=== PATIENT | female | born 1955 | race Caucasian/White ===

== ENCOUNTER 2018-06-07 17:15 | Inpatient (IN) ==
[2018-06-07] MEDS ORDERED: Aspirin 81 MG TAB.CHEW PO ONE (17:23)
[2018-06-07 17:56] LABS: Basophils % 0.2 %; Eosinophils % 0.1 %; Hematocrit 40.7 % (35.3-44.9); Hemoglobin 13.5 g/dL (11.5-15.4); Immature Granulocytes % 0.7 % (0-4); Lymphocytes # 0.7 K/mcL (0.6-4.6); Lymphocytes % 4.1 %; Mean Corpuscular HGB Conc 33.2 g/dL (31.6-35.5); Mean Corpuscular Hemoglobin 29.1 pg (28.0-33.3); Mean Corpuscular Volume 87.7 fL (83.0-100.0); Mean Platelet Volume 9.7 fL (9.4-12.4); Monocytes # 0.7 K/mcL (0.0-1.3); Monocytes % 4.1 %; Neutrophils # 15.2 K/mcL (1.6-8.9); Platelet Count 184 K/mcL (140-400); Red Blood Count 4.64 M/mcL (3.82-4.97); Red Cell Distribution Width 13.2 % (11.5-14.5); Segmented Neutrophils % 90.8 %
--- NOTE | 2018-06-07 18:07 | Emergency Department Note ---
Disposition Clinical Impression: RUQ abdominal pain, Nodule on liver, Elevated WBCs Chest pain Qualifiers: Chest pain type: unspecified Qualified Code(s): R07.9 - Chest pain, unspecified Disposition: Admitted As Inpatient Condition: Good General Adult HPI - General Chief complaint: ED Chest Pain Stated complaint: CP Time Seen by Provider: 06/07/18 17:20 Source: patient, family Limitations: no limitations - History of Present Illness Pain Scale: 9 - Related Data Previous Rx's Medication Instructions Recorded Diclofenac Sodium [Voltaren] 50 mg PO Q8HR #30 tablet. 11/08/16 Clindamycin [Cleocin] 150 mg PO Q6HR #7 capsule 02/04/17 HYDROcodone/Acet 5/325 mg [[place] 1 tab PO Q6H PRN #14 tab 02/04/17 5-325 mg] Ibuprofen [Motrin] 600 mg PO Q8HR #20 tab 02/04/17 Allergies Allergy/AdvReac Type Severity Reaction Status Date / Time lisinopril Allergy Rash/Itchin Verified 01/27/17 10:38 g codeine AdvReac Vomiting Verified 01/27/17 10:38 Past Medical History - Past Medical History Medical history: Reports: diabetes, fibromyalgia, hypertension, thyroid disease, other Surgical history: Reports: , cholecystectomy, WILY/BSO Psychiatric history: Reports: anxiety - Social History Smoking Status: Never smoker Smokeless Tobacco Status: No Alcohol use: Reports: none Drug use: Reports: none Physical Exam - General Limitations: no limitations General appearance: alert, in no apparent distress Course Vital Signs Temperature 99.6 F 06/07/18 17:17 Pulse Rate 119 06/07/18 17:17 Respiratory Rate 20 06/07/18 17:17 Blood Pressure 137/74 06/07/18 17:17 O2 Sat by Pulse Oximetry 97 06/07/18 17:17 Temperature 99.6 F 06/07/18 17:26 Pulse Rate 105 06/07/18 19:31 Respiratory Rate 18 06/07/18 19:31 Blood Pressure 114/69 06/07/18 18:13 O2 Sat by Pulse Oximetry 97 06/07/18 19:31 Oxygen Delivery Oxygen Delivery Room Air Medical Decision Making - Lab Data Result diagrams: 06/07/18 17:42 06/07/18 17:42 Lab Results 06/07/18 06/07/18 Range/Units 17:42 17:42 WBC 16.8 H (4.3-11.1) K/mcL RBC 4.64 (3.82-4.97) M/mcL Hgb 13.5 (11.5-15.4) g/dL Hct 40.7 (35.3-44.9) % MCV 87.7 (83.0-100.0) fL MCH 29.1 (28.0-33.3) pg MCHC 33.2 (31.6-35.5) g/dL RDW 13.2 (11.5-14.5) % Plt Count 184 (140-400) K/mcL MPV 9.7 (9.4-12.4) fL Immature Gran % 0.7 (0-4) % Seg Neutrophils % 90.8 % Lymphocytes % 4.1 % Monocytes % 4.1 % Eosinophils % 0.1 % Basophils % 0.2 % Neutrophils # 15.2 H (1.6-8.9) K/mcL Lymphocytes # 0.7 (0.6-4.6) K/mcL Monocytes # 0.7 (0.0-1.3) K/mcL Eosinophils # 0.0 (0.0-0.6) K/mcL Basophils # 0.0 (0.0-0.2) K/mcL Sodium 132 L (136-145) mEq/L Potassium 3.8 (3.5-5.1) mEq/L Chloride 99 (98-107) mEq/L Carbon Dioxide 25 (23-29) mEq/L BUN 13 (8-23) mg/dL Creatinine 0.69 (0.60-1.20) mg/dL Est GFR ( Amer) > 60 (> 60) Est GFR (Non-Af Amer) > 60 (> 60) BUN/Creatinine Ratio 19 (6-26) Glucose 155 H (70-105) mg/dL Calculated Osmolality 277 L (280-300) Calcium 8.8 (8.6-10.3) mg/dL Total Bilirubin 0.6 (0.3-1.0) mg/dL Direct Bilirubin 0.2 (0.0-0.2) mg/dL Indirect Bilirubin 0.4 (0.0-1.2) mg/dL AST 31 (13-39) Units/L ALT 30 (7-52) Units/L Alkaline Phosphatase 121 H (34-104) Units/L Troponin I < 0.03 (< 0.04) ng/mL Serum Total Protein 7.2 (6.4-8.9) g/dL Albumin 4.0 (3.5-5.7) g/dL Globulin 3.2 (2.4-3.5) g/dL Albumin/Globulin Ratio 1.3 (1.1-2.2) Lipase 9 L (11-82) Units/L Attestation Statement - Attestation Attestation: I examined this patient and my medical decision-making was reviewed with the Resident Physician. I agree with the documented findings, disposition and treatment plan as described except to the extent set forth below. Patient to the ED with a chief clinic chest pain. Patient describes sharp pain in the lower chest. Onset a few months ago but has been constant for the past couple weeks. Worse the past couple days. No vomiting no fever. No cardiac history. Never had a stress test or heart catheter. On examination she is awake and alert in no distress. Heart regular rate and rhythm lungs are clear. Plan. Cardiac workup. White count elevated. We will go back and reevaluate for abdominal pathology. CT abdomen is unremarkable. Patient will be admitted for further cardiac workup secondary risk factors and an elevated heart score.
--- NOTE | 2018-06-07 18:09 | Emergency Department Note ---
Disposition Clinical Impression: RUQ abdominal pain, Nodule on liver, Elevated WBCs Chest pain Qualifiers: Chest pain type: unspecified Qualified Code(s): R07.9 - Chest pain, unspecified Disposition: Admitted As Inpatient Condition: Good Chest Pain HPI - General Chief Complaint: ED Chest Pain Stated Complaint: CP Time Seen by Provider: 06/07/18 17:20 Source: patient, family Limitations: no limitations - History of Present Illness HPI Narrative: Lamar is a 63 YO F with a PMH significant for DM, HTN, hypothyroidsm, fibromyalgia who presents with a chief complaint of chest pain. History comes from the patient and her . Lamar states she has had intermittant chest pain for the last 3 months. She states that this pain is a sharp, substernal pain that is nonradiating, not worsened with exertion or relieved by rest, not reproducible with palpation and nonpositional. She states that over the last 3 months she has experienced this pain spontaneously 2-3 times per week, lasting several minutes with each episode. However in the last 2-3 weeks she has noted that this pain is occurring multiple times per day. This marked increase in the frequency of her symptoms made her very concerned and led her to come to [facility] ED for further evaluation and treatment. She endorses some associated nausea heada mari and shortness of breath associated with this chest pain, but denies F/C/NS. She does not have a personal history of cardiac disease however her father had 3 heart attacks, with the first occurring at age 40. Pt complaint: chest pain Onset (ago): month(s) Duration: intermittent, gradually worsening Onset: during rest, during exertion Pain Location: substernal Severity: severe Severity scale (1-10): 9 Quality: sharp Pain Radiation: none Improves with: nothing Worsens with: nothing Associated symptoms: Reports: nausea - Related Data Previous Rx's Medication Instructions Recorded Diclofenac Sodium [Voltaren] 50 mg PO Q8HR #30 tablet. 11/08/16 Clindamycin [Cleocin] 150 mg PO Q6HR #7 capsule 02/04/17 HYDROcodone/Acet 5/325 mg [[place] 1 tab PO Q6H PRN #14 tab 02/04/17 5-325 mg] Ibuprofen [Motrin] 600 mg PO Q8HR #20 tab 02/04/17 Allergies Allergy/AdvReac Type Severity Reaction Status Date / Time lisinopril Allergy Rash/Itchin Verified 01/27/17 10:38 g codeine AdvReac Vomiting Verified 01/27/17 10:38 Constitutional: Denies: fever, chills, weakness Cardiovascular: Reports: chest pain. Denies: palpitations, edema Respiratory: Denies: cough, wheezes, sputum production Gastrointestinal: Reports: nausea. Denies: abdominal pain, vomiting, diarrhea Genitourinary: Denies: urgency, dysuria Musculoskeletal: Denies: back pain Neurological: Reports: headache. Denies: weakness Psychiatric: Denies: anxiety Endocrine: Denies: fatigue Chest Pain PMH - Past Medical History Medical history: Reports: diabetes, fibromyalgia, hypertension, thyroid disease, other Surgical history: Reports: , cholecystectomy, WILY/BSO Psychiatric history: Reports: anxiety - Social History Smoking Status: Never smoker Alcohol use: Reports: none Drug use: Reports: none Physical Exam - General Limitations: no limitations General appearance: alert, in no apparent distress - Head Head exam: atraumatic, normocephalic, normal inspection - Eye Eye exam: Present: normal appearance - ENT ENT exam: normal exam - Neck Neck exam: Present: normal inspection, full ROM, trachea midline - Cardiovascular Cardiovascular exam: Present: normal rhythm, tachycardia, normal heart sounds - Abdominal Exam Abdominal exam: Present: soft. Absent: tenderness, distention, guarding, rebound, rigidity Abdominal tenderness: Present: RUQ - Extremities Exam Extremities exam: Present: normal inspection, full ROM - Expanded Lower Extremity Exam Neurovascular/Tendon exam: Present: normal capillary refill, pulse deficit, motor deficit, sensory deficit - Neurological Exam Neurological exam: Present: alert, oriented X3, CN II-XII intact - Psychiatric Psychiatric exam: Present: normal affect, normal mood - Skin Skin exam: Present: warm, dry, intact, normal color Course Course Narrative: Will perform chest pain rule out work up, including imaging and laboratory evaluation. - Reevaluation(s) Reevaluation #1: Initial troponin negative, no STEMI on EKG. CXR and CT ABD/Pelvis showed no acute abnormality. Heart score of five, no previous cardiac echo or stress test. Will admit to trend out enzymes and pursue stress test if future troponins are negative. Vital Signs Temperature 99.6 F 06/07/18 17:17 Pulse Rate 119 06/07/18 17:17 Respiratory Rate 20 06/07/18 17:17 Blood Pressure 137/74 06/07/18 17:17 O2 Sat by Pulse Oximetry 97 06/07/18 17:17 Temperature 99.6 F 06/07/18 17:26 Pulse Rate 105 06/07/18 19:31 Respiratory Rate 18 06/07/18 19:31 Blood Pressure 114/69 06/07/18 18:13 O2 Sat by Pulse Oximetry 97 06/07/18 19:31 Oxygen Delivery Oxygen Delivery Room Air Chest Pain - Lab Data Result diagrams: 06/07/18 17:42 06/07/18 17:42 Lab Results 06/07/18 06/07/18 Range/Units 17:42 17:42 WBC 16.8 H (4.3-11.1) K/mcL RBC 4.64 (3.82-4.97) M/mcL Hgb 13.5 (11.5-15.4) g/dL Hct 40.7 (35.3-44.9) % MCV 87.7 (83.0-100.0) fL MCH 29.1 (28.0-33.3) pg MCHC 33.2 (31.6-35.5) g/dL RDW 13.2 (11.5-14.5) % Plt Count 184 (140-400) K/mcL MPV 9.7 (9.4-12.4) fL Immature Gran % 0.7 (0-4) % Seg Neutrophils % 90.8 % Lymphocytes % 4.1 % Monocytes % 4.1 % Eosinophils % 0.1 % Basophils % 0.2 % Neutrophils # 15.2 H (1.6-8.9) K/mcL Lymphocytes # 0.7 (0.6-4.6) K/mcL Monocytes # 0.7 (0.0-1.3) K/mcL Eosinophils # 0.0 (0.0-0.6) K/mcL Basophils # 0.0 (0.0-0.2) K/mcL Sodium 132 L (136-145) mEq/L Potassium 3.8 (3.5-5.1) mEq/L Chloride 99 (98-107) mEq/L Carbon Dioxide 25 (23-29) mEq/L BUN 13 (8-23) mg/dL Creatinine 0.69 (0.60-1.20) mg/dL Est GFR ( Amer) > 60 (> 60) Est GFR (Non-Af Amer) > 60 (> 60) BUN/Creatinine Ratio 19 (6-26) Glucose 155 H (70-105) mg/dL Calculated Osmolality 277 L (280-300) Calcium 8.8 (8.6-10.3) mg/dL Total Bilirubin 0.6 (0.3-1.0) mg/dL Direct Bilirubin 0.2 (0.0-0.2) mg/dL Indirect Bilirubin 0.4 (0.0-1.2) mg/dL AST 31 (13-39) Units/L ALT 30 (7-52) Units/L Alkaline Phosphatase 121 H (34-104) Units/L Troponin I < 0.03 (< 0.04) ng/mL Serum Total Protein 7.2 (6.4-8.9) g/dL Albumin 4.0 (3.5-5.7) g/dL Globulin 3.2 (2.4-3.5) g/dL Albumin/Globulin Ratio 1.3 (1.1-2.2) Lipase 9 L (11-82) Units/L Heart Score - Score History: Moderately Suspicious EKG: Non Specific repolarisation Disturbance Age: 45-65 Risk Factors: Equal/Greater than 3 risk factor or history of atherosclerotic disease Troponin: Less than normal limit HEART Score Total: 5
[2018-06-07] MEDS ORDERED: Isovue-370 500 ML INFUS..BTL IV ONE ×2 (18:12→23:56)
[2018-06-07 18:15] LABS: BUN/Creatinine Ratio 19 (6-26); Blood Urea Nitrogen 13 mg/dL (8-23); Calcium 8.8 mg/dL (8.6-10.3); Carbon Dioxide 25 mEq/L (23-29); Chloride 99 mEq/L (98-107); Glucose 155 mg/dL (70-105); Osmolality,Calculated 277 (280-300); Potassium 3.8 mEq/L (3.5-5.1); Sodium 132 mEq/L (136-145); eGFR For Non-African Americans > 60 (> 60)
[2018-06-07 18:16] LABS: Troponin I < 0.03 ng/mL (< 0.04)
--- NOTE | 2018-06-07 18:16 | Emergency Department Note ---
Disposition Clinical Impression: RUQ abdominal pain, Nodule on liver Chest pain Qualifiers: Chest pain type: unspecified Qualified Code(s): R07.9 - Chest pain, unspecified Elevated WBCs Qualifiers: Leukocytosis type: unspecified Qualified Code(s): D72.829 - Elevated white blood cell count, unspecified Disposition: Admitted As Inpatient Condition: Good Time of Disposition: 19:18 General Adult HPI - General Chief complaint: ED Chest Pain Stated complaint: CP Time Seen by Provider: 06/07/18 17:20 Source: patient, family Limitations: no limitations Nursing Notes Reviewed: Yes Vital Signs Reviewed: Yes - History of Present Illness HPI Narrative: I examined this patient and my medical decision-making was reviewed with the Resident Physician Maria Eugenia. I agree with the documented history of present illness. Please see my note for physical exam, medical decision making, and disposition. Pain Scale: 9 - Related Data Previous Rx's Medication Instructions Recorded Diclofenac Sodium [Voltaren] 50 mg PO Q8HR #30 tablet. 11/08/16 Clindamycin [Cleocin] 150 mg PO Q6HR #7 capsule 02/04/17 HYDROcodone/Acet 5/325 mg [[place] 1 tab PO Q6H PRN #14 tab 02/04/17 5-325 mg] Ibuprofen [Motrin] 600 mg PO Q8HR #20 tab 02/04/17 Allergies Allergy/AdvReac Type Severity Reaction Status Date / Time lisinopril Allergy Rash/Itchin Verified 01/27/17 10:38 g codeine AdvReac Vomiting Verified 01/27/17 10:38 All systems ED: reviewed and negative except as stated. Constitutional: Denies: fever, chills, weakness Cardiovascular: Reports: chest pain. Denies: palpitations, edema Respiratory: Denies: cough, wheezes, sputum production Gastrointestinal: Reports: nausea. Denies: abdominal pain, vomiting, diarrhea Genitourinary: Denies: urgency, dysuria Musculoskeletal: Denies: back pain Neurological: Reports: headache. Denies: weakness Psychiatric: Denies: anxiety Endocrine: Denies: fatigue Past Medical History - Past Medical History Medical history: Reports: diabetes, fibromyalgia, hypertension, thyroid disease, other Surgical history: Reports: , cholecystectomy, WILY/BSO Psychiatric history: Reports: anxiety - Social History Smoking Status: Never smoker Smokeless Tobacco Status: No Alcohol use: Reports: none Drug use: Reports: none Physical Exam Vital Signs Reviewed General: Patient is alert, oriented, and in no acute distress. Head: atraumatic, normocephalic Eye: normal appearance, PERRL, EOMI, no scleral icterus, no conjunctival injection ENT: mucous membranes moist, normal external ear exam Neck: normal inspection, trachea midline, full ROM Chest: normal inspection, symmetric chest rise Respiratory: Good respiratory effort. Bilateral breath sounds are clear without wheezing, crackles, or rhonchi. Cardiovascular: Regular rate and rhythm. No clicks, rubs, gallops, or murmors. Normal heart sounds. Abdomen: Bowel sounds present normoactive. Abdomen is soft, nondistended. Mild epigastric and right tenderness. No guarding or rebound. No organomegaly noted. Musculoskeletal: Spontaneously moving all extremities. Skin: warm, dry, intact. Neuro: Alert and oriented x4. GCS 15. Psych: Patient's affect is appropriate for situation. - General Limitations: no limitations General appearance: alert, in no apparent distress Course Course Narrative: Concern both for patient's chest pain as well as her right upper quadrant and epigastric pain. EKG shows no acute ischemic changes. Has never had a cardiac workup previously. The patient's abdominal surgical history includes cholecystectomy, complete hysterectomy with bilateral oophorectomy, and 3 hernia repairs-will draw LFTs, lipase, CT of the pelvis with IV contrast. The patient is afebrile, she does have leukocytosis of 16.8. EKG dated May at 17:31 interpreted as sinus tachycardia with a rate of 114. NC 62, QRS 88, QTc 453. Nonspecific ST-T changes. Compared to previous dated 01/27/2017 showing no acute ischemic changes or comparison. CT abdomen pelvis shows no acute intra-abdominal abnormalities per radiology read. There are some liver nodules suspicious for cirrhosis per radiology. Patient does not have elevated hepatic enzymes or bilirubin. Chest x-ray is unremarkable. EKG is unremarkable. Serum chemistry shows troponin below upper limits of normal. I discussed the above the patient. Given her risk factors with a heart score 5, recommend admission for continued evaluation and management. Patient agrees to this plan of care. I discussed the above with the admitting hospitalist, Dr. Taylor, who agrees to accept patient for continued evaluation monitoring for chest pain rule out ACS. Chest X-Ray 06/07/18 17:23 IMPRESSION: No acute process. D/ / Mario Alberto Ratliff MD / Mario Alberto Ratliff MD Interpreting Provider: Mario Alberto Ratliff MD Abdomen/Pelvis CT 06/07/18 18:12 IMPRESSION: 1. No acute intra-abdominal abnormality. 2. No acute intrapelvic abnormality. 3. Nodular appearance to the liver which may represent cirrhosis. D/ / Vaughn Purcell MD / Vaughn Purcell MD Interpreting Provider: Vaughn Purcell MD Vital Signs Temperature 99.6 F 06/07/18 17:17 Pulse Rate 119 06/07/18 17:17 Respiratory Rate 20 06/07/18 17:17 Blood Pressure 137/74 06/07/18 17:17 O2 Sat by Pulse Oximetry 97 06/07/18 17:17 Temperature 99.6 F 06/07/18 17:26 Pulse Rate 105 06/07/18 19:31 Respiratory Rate 18 06/07/18 19:31 Blood Pressure 114/69 06/07/18 18:13 O2 Sat by Pulse Oximetry 97 06/07/18 19:31 Oxygen Delivery Oxygen Delivery Room Air Medical Decision Making - Lab Data Result diagrams: 06/07/18 17:42 06/07/18 17:42 Lab Results 06/07/18 06/07/18 Range/Units 17:42 17:42 WBC 16.8 H (4.3-11.1) K/mcL RBC 4.64 (3.82-4.97) M/mcL Hgb 13.5 (11.5-15.4) g/dL Hct 40.7 (35.3-44.9) % MCV 87.7 (83.0-100.0) fL MCH 29.1 (28.0-33.3) pg MCHC 33.2 (31.6-35.5) g/dL RDW 13.2 (11.5-14.5) % Plt Count 184 (140-400) K/mcL MPV 9.7 (9.4-12.4) fL Immature Gran % 0.7 (0-4) % Seg Neutrophils % 90.8 % Lymphocytes % 4.1 % Monocytes % 4.1 % Eosinophils % 0.1 % Basophils % 0.2 % Neutrophils # 15.2 H (1.6-8.9) K/mcL Lymphocytes # 0.7 (0.6-4.6) K/mcL Monocytes # 0.7 (0.0-1.3) K/mcL Eosinophils # 0.0 (0.0-0.6) K/mcL Basophils # 0.0 (0.0-0.2) K/mcL Sodium 132 L (136-145) mEq/L Potassium 3.8 (3.5-5.1) mEq/L Chloride 99 (98-107) mEq/L Carbon Dioxide 25 (23-29) mEq/L BUN 13 (8-23) mg/dL Creatinine 0.69 (0.60-1.20) mg/dL Est GFR ( Amer) > 60 (> 60) Est GFR (Non-Af Amer) > 60 (> 60) BUN/Creatinine Ratio 19 (6-26) Glucose 155 H (70-105) mg/dL Calculated Osmolality 277 L (280-300) Calcium 8.8 (8.6-10.3) mg/dL Total Bilirubin 0.6 (0.3-1.0) mg/dL Direct Bilirubin 0.2 (0.0-0.2) mg/dL Indirect Bilirubin 0.4 (0.0-1.2) mg/dL AST 31 (13-39) Units/L ALT 30 (7-52) Units/L Alkaline Phosphatase 121 H (34-104) Units/L Troponin I < 0.03 (< 0.04) ng/mL Serum Total Protein 7.2 (6.4-8.9) g/dL Albumin 4.0 (3.5-5.7) g/dL Globulin 3.2 (2.4-3.5) g/dL Albumin/Globulin Ratio 1.3 (1.1-2.2) Lipase 9 L (11-82) Units/L Heart Score - Score History: Moderately Suspicious EKG: Non Specific repolarisation Disturbance Age: 45-65 Risk Factors: Equal/Greater than 3 risk factor or history of atherosclerotic disease Troponin: Less than normal limit HEART Score Total: 5
[2018-06-07 18:52] LABS: Alanine Aminotransferase 30 Units/L (7-52); Albumin/Globulin Ratio 1.3 (1.1-2.2); Alkaline Phosphatase 121 Units/L (34-104); Aspartate Amino Transferase 31 Units/L (13-39); Bilirubin,Direct 0.2 mg/dL (0.0-0.2); Bilirubin,Indirect 0.4 mg/dL (0.0-1.2); Bilirubin,Total 0.6 mg/dL (0.3-1.0); Globulin 3.2 g/dL (2.4-3.5); Lipase 9 Units/L (11-82); Total Protein 7.2 g/dL (6.4-8.9)
[2018-06-07] MEDS ORDERED: 0.9 % Sodium Chloride 1,000 ML IVC ONE (20:55)
[2018-06-07] MEDS ORDERED: *HR* HYDROcodone/Acet 5/325 mg TABLET PO PRN (20:55)
[2018-06-07] MEDS ORDERED: Nitroglycerin 0.4 MG TAB.SUBL SL PRN (21:00)
[2018-06-07] MEDS ORDERED: Dextrose Gel 15 GM/37.5 ML TUBE PO PRN ×2 (21:04)
[2018-06-07] MEDS ORDERED: Ondansetron 4 MG/2 ML VIAL IVP PRN (21:08)
[2018-06-07] MEDS ORDERED: traMADol 50 MG TABLET PO PRN (21:09)
--- NOTE | 2018-06-07 21:17 | Internal Med History&Physical ---
Date of Encounter: 06/07/18 Time of Encounter: 21:15 Internal Medicine - H&P: HPI Chief complaint: Chest pain Admitted From: Home Plans for Post Hospital Care: Home History of present illness: Lamar Sanchez is a 63 year old obese woman who reports a history of diabetes presenting with a complaint of midsternal chest pain. She stated that she has been having chest pain on and off for the past couple of months however in the last week it has been more frequent and prolonged in duration localizing it to the inferior midsternal region. She denies associated shortness of breath, diaphoresis or lightheadedness. She does state she has felt some palpitations with the chest pain as well. She denies any prior cardiac history. He denies shortness of breath, cough or expectoration. No fever or chills. In the ER she was found to have an elevated leukocyte count for unclear reasons on abdominal CT was done which was suggestive of signs of liver cirrhosis but no acute abnormalities found. Her serum lipase and LFTs were normal. Her EKG reviewed by me showed normal sinus rhythm with isolated PVCs. She is admitted for further observation of her chest pain. She has thus far not receive any nitroglycerin but received loading dose of aspirin. Past Med Surg Social Fam HX - Past Medical History Medical history: diabetes, fibromyalgia, hypertension, thyroid disease, other Additional medical history: sleep apnea Psychiatric history: anxiety - Past Surgical History Surgical History: , cholecystectomy, WILY/BSO Additional surgical history: TMJ surgery. tmj. pil. cyst. inc. hernia x 3. rectal fistula. ovarian cancer 2001 - Social History Smoking Status: Never smoker Smokeless Tobacco Status: No Alcohol use: none Drug use: none - Family History Mother Adopted: No Living Status: Age at : 83 Cause of : cancer Hx Family Cardiac Disorders: Yes (father CHF) Hx Family Respiratory Disorders: No Hx Family Cancer: Yes (mother breast, stomach and lung) Hx Family GI Disorders: No Hx Family Genitourinary Disorders: No Hx Family Endocrine Disorder: No Hx Family Musculoskeletal Disorders: No Hx Family Neuromuscular Disorders: No Hx Family Neurologic Disorders: No Hx Family HEENT Disorders: No Hx Family Autoimmune Disorders: No Hx Family Reproductive Disorders: No Hx Family Psychosocial Disorders: No Hx Family Medical Disorders: No Internal Medicine - H&P: Meds Diclofenac Sodium [Voltaren] 50 mg PO Q8HR #30 tablet. 11/08/16 [Rx] Clindamycin [Cleocin] 150 mg PO Q6HR #7 capsule 02/04/17 [Rx] HYDROcodone/Acet 5/325 mg [[place] 5-325 mg] 1 tab PO Q6H PRN #14 tab 02/04/17 [Rx] Ibuprofen [Motrin] 600 mg PO Q8HR #20 tab 02/04/17 [Rx] Allergy/AdvReac Type Severity Reaction Status Date / Time lisinopril Allergy Rash/Itchin Verified 01/27/17 10:38 g codeine AdvReac Vomiting Verified 01/27/17 10:38 All Systems PM: A 10-system review of systems was performed and is negative for pertinent findings except as documented above in the HPI. - Constitutional Vitals: Temp Pulse Resp BP Pulse Ox 100.5 F H 108 17 146/76 96 06/07/18 20:29 06/07/18 20:29 06/07/18 20:29 06/07/18 20:29 06/07/18 20:29 Exam: Vitals: Reviewed General: Obese white female lying comfortably in bed in no acute distress Skin: Warm and supple. HEENT: Moist mucous membranes. No conjunctivae pallor. Neck: No lymphadenopathy. No JVD. No carotid bruits. No palpable thyroid. Chest: Normal thoracic expansion. Normal breath sounds. Clear to auscultation. Heart: Normal S1 & S2; rhythmic. No rubs or murmurs. Abdomen: Non-distended, soft and non-tender to palpation. No peritoneal reaction. Extremities: No clubbing, cyanosis or edema. No calf tenderness. Normal distal pulses. Neurological: Awake, alert and oriented to person, place and time. No focal deficits. Psych: Affect appropriate. Internal Med - H&P Results - Labs CBC & Chem 7: 06/07/18 17:42 06/07/18 17:42 Labs: Short CBC 06/07/18 Range/Units 17:42 WBC 16.8 H (4.3-11.1) K/mcL Hgb 13.5 (11.5-15.4) g/dL Hct 40.7 (35.3-44.9) % Plt Count 184 (140-400) K/mcL Neutrophils # 15.2 H (1.6-8.9) K/mcL BMP 06/07/18 17:42 Sodium 132 L Potassium 3.8 Chloride 99 Carbon Dioxide 25 BUN 13 Creatinine 0.69 Glucose 155 H Calcium 8.8 Cardiac Enzymes 06/07/18 Range/Units 17:42 Troponin I < 0.03 (< 0.04) ng/mL Liver Function 06/07/18 Range/Units 17:42 Total Bilirubin 0.6 (0.3-1.0) mg/dL Direct Bilirubin 0.2 (0.0-0.2) mg/dL AST 31 (13-39) Units/L ALT 30 (7-52) Units/L Alkaline Phosphatase 121 H (34-104) Units/L Albumin 4.0 (3.5-5.7) g/dL - Impressions ITS Impressions Chest X-Ray 06/07/18 17:23 IMPRESSION: No acute process. D/ / Mario Alberto Ratliff MD / Mario Alberto Ratliff MD Interpreting Provider: Mario Alberto Ratliff MD Abdomen/Pelvis CT 06/07/18 18:12 IMPRESSION: 1. No acute intra-abdominal abnormality. 2. No acute intrapelvic abnormality. 3. Nodular appearance to the liver which may represent cirrhosis. D/ / Vaughn Purcell MD / Vaughn Purcell MD Interpreting Provider: Vaughn Purcell MD - Assessment and plan (1) Chest pain Current Visit: Yes Status: Acute Assessment and plan: The patient has risk factors for CAD and the chest pain that has been increasing in frequency and duration is concerning for unstable angina. She has never had a cardiac evaluation in the past. She warrants observation on telemetry, trending troponins and will keep NPO for stress test in the morning. Qualifiers: Chest pain type: unspecified Qualified Code(s): R07.9 - Chest pain, unspecified (2) Diabetes Current Visit: Yes Status: Acute Assessment and plan: Will place on insulin sliding scale for the time being. Noted to have poor control based on her previous A1C. Qualifiers: Diabetes mellitus type: type 2 Diabetes mellitus snf insulin use: unspecified snf insulin use status Diabetes mellitus complication status: with unspecified complications Qualified Code(s): E11.8 - Type 2 diabetes mellitus with unspecified complications (3) Nodular hyperplasia of liver Current Visit: Yes Status: Acute Assessment and plan: Clinically has no signs of liver cirrhosis and serologic studies are within normal limits. Will obtain a dedicated liver ultrasound for further evaluation as she could have progressing hepatic steatosis leading to cirrhosis. (4) Elevated WBCs Current Visit: Yes Status: Acute Assessment and plan: Unclear etiology. No clinical signs of infection present at this time. Will give some fluids and re-assess. Qualifiers: Leukocytosis type: unspecified Qualified Code(s): D72.829 - Elevated white blood cell count, unspecified - Time Spent With Patient Total time spent is greater than 50% in coordination of care (as documented) at patient's floor/unit and/or counseling patient: Greater than 35 minutes
[2018-06-07] MEDS: *HR* Heparin 5,000 UNIT/ML VIAL SQ SCH (21:46)
[2018-06-07] MEDS ORDERED: *HR* Metoprolol 5 MG/5 ML VIAL IVP ONE ×2 (23:34→23:37)
[2018-06-07] MEDS: Acetaminophen 325 MG TABLET PO PRN (23:41)
[2018-06-07] MEDS ORDERED: 0.9 % Sodium Chloride 1,000 ML IVC SCH (23:45)
--- NOTE | 2018-06-07 23:53 | Event Note ---
Date of Encounter: 06/07/18 Time of Encounter: 23:49 Since arrival to the floor, the patient continues to have fever of unclear etiology; most recently 100.7F. She appears flushed. She has developed an atrial tachycardia to the 130s on telemetry with EKG being inconclusive. On physical exam its a regular heart rhythm with no pulse deficit but tachycardic. When slowed down with 5mg of metoprolol, it shows normal sinus rhythm. Blood cultures have been obtained, will swab for influenza and keep on maintenance fluids. She denies cough and expectoration. Bases of the lungs seen on abdomen CT do not show any consolidation. Will obtain a Ua although she reports no dysuric symptoms at this time. Also obtain chest CT with contrast for evaluation.
[2018-06-08] MEDS: 0.9 % Sodium Chloride 1,000 ML IVC SCH ×2 (00:29→11:42)
[2018-06-08] MEDS: Insulin LISPRO 300 UNITS/3 ML VIAL SQ SCH ×4 (02:34→18:26)
[2018-06-08 04:05] LABS: Bilirubin,Urine Negative (Negative); Blood,Urine Trace (Negative); Clarity,Urine Clear (Clear); Color,Urine Yellow (Yellow); Glucose,Urine (UA) Normal (Normal); Ketones,Urine 40 mg/dL (Negative); Leukocyte Esterase,Urine Negative (Negative); Nitrite,Urine Positive (Negative); Protein,Urine 30 mg/dL (Neg-Trace); Specific Gravity,Urine > 1.030 (1.010-1.025); Urobilinogen,Urine Normal (Normal)
[2018-06-08 04:15] LABS: Bacteria,Urine Moderate per hpf (None-Few); Hyaline Casts,Urine None Seen per lpf (None-Few); Squamous Epithelial Cell,Urine Few per lpf (None-Few)
[2018-06-08 04:16] LABS: RBC,Urine 0-3 per hpf (0-3)
[2018-06-08 05:43] LABS: Basophils % 0.2 %; Hematocrit 36.9 % (35.3-44.9); Hemoglobin 12.4 g/dL (11.5-15.4); Immature Granulocytes % 0.6 % (0-4); Lymphocytes # 0.4 K/mcL (0.6-4.6); Lymphocytes % 3.6 %; Mean Corpuscular HGB Conc 33.6 g/dL (31.6-35.5); Mean Corpuscular Hemoglobin 29.5 pg (28.0-33.3); Mean Corpuscular Volume 87.6 fL (83.0-100.0); Mean Platelet Volume 9.8 fL (9.4-12.4); Monocytes # 0.2 K/mcL (0.0-1.3); Neutrophils # 10.7 K/mcL (1.6-8.9); Platelet Count 137 K/mcL (140-400); Red Blood Count 4.21 M/mcL (3.82-4.97); Red Cell Distribution Width 13.7 % (11.5-14.5); Segmented Neutrophils % 93.6 %
[2018-06-08] MEDS ORDERED: Regadenoson 0.4 MG/5 ML SYRINGE IVP ONE (05:48)
[2018-06-08 06:06] LABS: Troponin I < 0.03 ng/mL (< 0.04)
[2018-06-08 06:13] LABS: BUN/Creatinine Ratio 21 (6-26); Blood Urea Nitrogen 14 mg/dL (8-23); Calcium 8.1 mg/dL (8.6-10.3); Carbon Dioxide 20 mEq/L (23-29); Chloride 104 mEq/L (98-107); Glucose 180 mg/dL (70-105); Osmolality,Calculated 283 (280-300); Potassium 3.3 mEq/L (3.5-5.1); Sodium 134 mEq/L (136-145); eGFR For Non-African Americans > 60 (> 60)
[2018-06-08] MEDS: *HR* Heparin 5,000 UNIT/ML VIAL SQ SCH ×3 (06:47→21:42)
[2018-06-08] MEDS: Levothyroxine 25 MCG TABLET PO SCH (06:47)
--- NOTE | 2018-06-08 09:13 | Electrocardiograph Report ---
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
--- NOTE | 2018-06-08 09:47 | Electrocardiograph Report ---
[place] [address] Test Date: 2018-06-07 Pat Name: Lamar Sanchez Department: 111 Room: 2NE28 Gender: Communications Manager: GRACE : 1955 Requested By: Ciaran Jensen Order Number: [id number] Reading MD: Wiley Frias Measurements Intervals [place] Rate: 134 P: [place]: 0 QRS: -22 QRSD: 77 T: 9 QT: 384 QTc: 463 Interpretive Statements SINUS TACHYCARDIA PROBABLE LVH Electronically Signed On 06-08-2018 9:45:23 EST by Wiley Frias
[2018-06-08] MEDS ORDERED: Gadolinium Contrast Agent (WT Based) IV PRN (11:27)
[2018-06-08] MEDS: Loratadine 10 MG TABLET PO SCH (11:31)
[2018-06-08] MEDS: Acetaminophen 325 MG TABLET PO PRN ×2 (11:41→22:02)
--- NOTE | 2018-06-08 19:29 | Internal Med Progress Note ---
Hospitalist Progress Note - Encounter Date of Encounter: 06/08/18 Time of Encounter: 12:35 - Subjective Interval History: Patient seen and examined today. She just came back from the ultrasound and spiked temperature 103.2. She denies any urinary symptoms. She has a dry cough. Yesterday she had a sore throat when she went to her doctor's office. On exam the throat has mild erythema but nothing remarkable. Her white count has improved without any antibiotics at this point. - Exam Vitals: Temp Pulse Resp BP Pulse Ox 103.2 F H 116 17 116/67 92 06/08/18 11:02 06/08/18 11:02 06/08/18 11:02 06/08/18 11:02 06/08/18 06:58 Exam: Vitals: Reviewed General: Obese white female lying comfortably in bed in no acute distress Skin: Warm and supple. HEENT: Moist mucous membranes. No conjunctivae pallor. Neck: No lymphadenopathy. No JVD. No carotid bruits. No palpable thyroid. Chest: Normal thoracic expansion. Normal breath sounds. Clear to auscultation. Heart: Normal S1 & S2; rhythmic. No rubs or murmurs. Abdomen: Non-distended, soft and non-tender to palpation. No peritoneal reaction. Extremities: No clubbing, cyanosis or edema. No calf tenderness. Normal distal pulses. Neurological: Awake, alert and oriented to person, place and time. No focal deficits. Psych: Affect appropriate. - Assessment and Plan (1) Chest pain Current Visit: Yes Status: Acute Assessment and Plan: Troponins have been negative. Consider nuclear medicine stress test once afebrile. Qualifiers: Chest pain type: unspecified Qualified Code(s): R07.9 - Chest pain, unspecified (2) Renal mass Current Visit: Yes Status: Suspected Assessment and Plan: Obtain MRI adrenal protocol. (3) Diabetes Current Visit: Yes Status: Acute Assessment and plan: Continue insulin sliding scale for the time being. Noted to have poor control based on her previous A1C. 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 Will obtain a dedicated liver ultrasound for further evaluation as she could have progressing hepatic steatosis leading to cirrhosis. (5) Elevated WBCs Current Visit: Yes Status: Acute Assessment and plan: Unclear etiology. No clinical signs of infection present at this time. This seems to be improving. Check mono test and strep test. Qualifiers: Leukocytosis type: unspecified Qualified Code(s): D72.829 - Elevated white blood cell count, unspecified - Time Spent with Patient Total time spent is greater than 50% in coordination of care (as documented) at patient's floor/unit and/or counseling patient: 25 - 35 minutes Internal Medicine: Result - Labs CBC & Chem 7: 06/08/18 05:28 06/08/18 05:28 Labs: Short CBC 06/08/18 Range/Units 05:28 WBC 11.5 H (4.3-11.1) K/mcL Hgb 12.4 (11.5-15.4) g/dL Hct 36.9 (35.3-44.9) % Plt Count 137 L (140-400) K/mcL Neutrophils # 10.7 H (1.6-8.9) K/mcL BMP 06/08/18 05:28 Sodium 134 L Potassium 3.3 L Chloride 104 Carbon Dioxide 20 L BUN 14 Creatinine 0.67 Glucose 180 H Calcium 8.1 L Cardiac Enzymes 06/07/18 06/08/18 Range/Units 22:13 05:28 Troponin I < 0.03 < 0.03 (< 0.04) ng/mL Urine 06/08/18 Range/Units 03:40 Urine Color Yellow (Yellow) Urine Clarity Clear (Clear) Urine pH 6.0 (5.0-8.0) pH Units Ur Specific [place] > 1.030 H (1.010-1.025) Urine Protein 30 H (Neg-Trace) mg/dL Urine Glucose (UA) Normal (Normal) mg/dL - Impressions Impressions Liver Ultrasound 06/08/18 09:00 IMPRESSION: 1. Cirrhotic liver with no visualized focal lesion. Possible underlying mild hepatic steatosis. LI-RADS category US-1, visualization score A 2. No sonographic correlate for focal enhancement in the upper pole of the right kidney seen on the chest CTA. Recommend further evaluation with renal protocol MRI or CT as recommended on that study. 3. Cholecystectomy. D/ / Mario Alberto Mix MD / Mario Alberto Mix MD Interpreting Provider: Mario Alberto Mix MD Chest CTA 06/08/18 23:56 IMPRESSION: No evidence of a pulmonary embolus. There is compressive atelectasis in the medial basal segment of the left lower lobe related to the tortuous thoracic aorta. There is incomplete visualization of an enhancing lesion in the lateral upper pole of the right kidney. This was not definitely visualized on the CT study performed with contrast 1 day ago. Follow-up renal protocol CT or MRI recommended for further evaluation. D/ / Renard Parks MD / Renard Parks MD Interpreting Provider: Renard Parks MD Consult Discharge Plan - Plan Referrals: Shasha Kaiser MD [Primary Care Provider] - (1) Chest pain Qualifiers: Chest pain type: unspecified Qualified Code(s): R07.9 - Chest pain, unspecified
[2018-06-09] MEDS: Insulin LISPRO 300 UNITS/3 ML VIAL SQ SCH ×5 (00:45→21:45)
[2018-06-09 04:25] LABS: Basophils % 0.4 %; Eosinophils % 0.1 %; Hematocrit 36.9 % (35.3-44.9); Hemoglobin 11.8 g/dL (11.5-15.4); Immature Granulocytes % 0.4 % (0-4); Lymphocytes # 0.8 K/mcL (0.6-4.6); Lymphocytes % 10.9 %; Mean Corpuscular Hemoglobin 28.6 pg (28.0-33.3); Mean Corpuscular Volume 89.3 fL (83.0-100.0); Mean Platelet Volume 10.4 fL (9.4-12.4); Monocytes # 0.4 K/mcL (0.0-1.3); Monocytes % 5.4 %; Platelet Count 104 K/mcL (140-400); Red Blood Count 4.13 M/mcL (3.82-4.97); Red Cell Distribution Width 13.6 % (11.5-14.5); Segmented Neutrophils % 82.8 %
[2018-06-09 04:42] LABS: BUN/Creatinine Ratio 27 (6-26); Blood Urea Nitrogen 15 mg/dL (8-23); Calcium 7.6 mg/dL (8.6-10.3); Carbon Dioxide 20 mEq/L (23-29); Chloride 103 mEq/L (98-107); Glucose 120 mg/dL (70-105); Osmolality,Calculated 276 (280-300); Potassium 3.4 mEq/L (3.5-5.1); Sodium 132 mEq/L (136-145); eGFR For Non-African Americans > 60 (> 60)
[2018-06-09] MEDS: *HR* Heparin 5,000 UNIT/ML VIAL SQ SCH ×3 (05:47→21:53)
[2018-06-09] MEDS: Levothyroxine 25 MCG TABLET PO SCH (05:47)
[2018-06-09] MEDS: 0.9 % Sodium Chloride 1,000 ML IVC SCH (05:51)
[2018-06-09] MEDS ORDERED: 0.9 % Sodium Chloride 1,000 ML IVC SCH (07:30)
[2018-06-09] MEDS: Loratadine 10 MG TABLET PO SCH (08:24)
[2018-06-09] MEDS ORDERED: *HR* LORazepam 0.5 MG TABLET PO ONE (10:44)
[2018-06-09] MEDS: Nystatin POWDER 30 GM BOTTLE TP SCH ×4 (10:51→21:53)
[2018-06-09] MEDS ORDERED: *HR* Metoprolol 5 MG/5 ML VIAL IVP ONE ×2 (11:28→11:30)
--- NOTE | 2018-06-09 12:47 | Internal Med Progress Note ---
Hospitalist Progress Note - Encounter Date of Encounter: 06/10/18 Time of Encounter: 11:45 - Subjective Interval History: Patient seen and examined today. She c/o fatigue. ST is better though she has a cough with unknown color of the phlegm. She is having repeat images for her stress test today. Her heart rate was 100 and we tried different maneuvers to get her heart rate below 100 for the stress test including lorazepam and later 5 mg of IV push metoprolol. Due to her ongoing symptoms a urinalysis and respirator panel will be obtained. - Exam Vitals: Temp Pulse Resp BP Pulse Ox 99.8 F H 114 16 139/67 94 06/09/18 11:00 06/09/18 11:00 06/09/18 11:00 06/09/18 11:00 06/09/18 11:00 Exam: Vitals: Reviewed General: Obese white female lying comfortably in bed in no acute distress Skin: Warm and supple. HEENT: Moist mucous membranes. No conjunctivae pallor. Neck: No lymphadenopathy. No JVD. No carotid bruits. No palpable thyroid. Chest: Normal thoracic expansion. Normal breath sounds. Clear to auscultation. Heart: Normal S1 & S2; rhythmic. No rubs or murmurs. Abdomen: Non-distended, soft and non-tender to palpation. No peritoneal reaction. Extremities: No clubbing, cyanosis or edema. No calf tenderness. Normal distal pulses. Neurological: Awake, alert and oriented to person, place and time. No focal deficits. Psych: Affect appropriate. - Assessment and Plan (1) Chest pain Current Visit: Yes Status: Acute Assessment and Plan: Troponins have been negative. Repeat stress images in progress. Qualifiers: Chest pain type: unspecified Qualified Code(s): R07.9 - Chest pain, unsp ecified (2) Renal mass Current Visit: Yes Status: Suspected Assessment and Plan: MRI shows complex renal cyst with sonographic follow-up in 6 months recommended. (3) Diabetes Current Visit: Yes Status: Acute Assessment and plan: Continue insulin sliding scale for the time being. Noted to have poor control based on her previous A1C. 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 Will obtain a dedicated liver ultrasound for further evaluation as she could have progressing hepatic steatosis leading to cirrhosis. (5) Elevated WBCs with Febrile illness Current Visit: Yes Status: Acute Assessment and plan: Leukocytosis has cleared. Unclear etiology. No clinical signs of infection present at this time. This seems to be improving. [place] test and strep test are negative. Check resp panel and repeat UA. Qualifiers: Leukocytosis type: unspecified Qualified Code(s): D72.829 - Elevated white blood cell count, unspecified (2) Renal mass Current Visit: Yes Status: Suspected - Time Spent with Patient Total time spent is greater than 50% in coordination of care (as documented) at patient's floor/unit and/or counseling patient: Internal Medicine: Result - Labs CBC & Chem 7: 06/10/18 04:47 06/10/18 04:47 Labs: Short CBC 06/09/18 Range/Units 04:00 WBC 7.2 (4.3-11.1) K/mcL Hgb 11.8 (11.5-15.4) g/dL Hct 36.9 (35.3-44.9) % Plt Count 104 L (140-400) K/mcL Neutrophils # 6.0 (1.6-8.9) K/mcL BMP 06/09/18 04:00 Sodium 132 L Potassium 3.4 L Chloride 103 Carbon Dioxide 20 L BUN 15 Creatinine 0.56 L Glucose 120 H Calcium 7.6 L - Impressions Impressions Abdomen MRI 06/08/18 11:27 IMPRESSION: Motion limited study. Bilateral renal lesions most likely represent complex cysts. Given limitations of the exam an atypical appearance seen on chest CT follow-up in 6 months with renal sonography could be considered to document continued stability. Hepatic steatosis. D/ / 06/08/2018 19:55:12 Melvin Purvis MD / igoryer Interpreting Provider: Melvin Purvis MD Consult Discharge Plan - Plan Referrals: Shasha Kaiser MD [Primary Care Provider] - (1) Chest pain Qualifiers: Chest pain type: unspecified Qualified Code(s): R07.9 - Chest pain, unspecified
[2018-06-09 13:28] LABS: Bilirubin,Urine Negative (Negative); Blood,Urine Small (Negative); Clarity,Urine Cloudy (Clear); Color,Urine Yellow (Yellow); Glucose,Urine (UA) Normal (Normal); Ketones,Urine 40 mg/dL (Negative); Leukocyte Esterase,Urine Moderate (Negative); Nitrite,Urine Negative (Negative); PH,Urine 6.5 pH Units (5.0-8.0); Protein,Urine 30 mg/dL (Neg-Trace); Specific Gravity,Urine < 1.005 (1.010-1.025)
[2018-06-09 13:31] LABS: Bacteria,Urine Many per hpf (None-Few); Hyaline Casts,Urine None Seen per lpf (None-Few); Squamous Epithelial Cell,Urine Many per lpf (None-Few)
[2018-06-09 13:43] LABS: RBC,Urine 0-3 per hpf (0-3)
[2018-06-09] MEDS ORDERED: Aspirin 325 MG TABLET PO ONE (14:00)
[2018-06-09] MEDS: Acetaminophen 325 MG TABLET PO PRN (14:14)
[2018-06-09 14:49] LABS: Adenovirus Not Detected (Not Detect); Bordetella Pertussis Not Detected (Not Detect); Coronavirus 229E Not Detected (Not Detect); Coronavirus HKU1 Not Detected (Not Detect); Coronavirus NL63 Not Detected (Not Detect); Coronavirus OC43 Not Detected (Not Detect); Human Metapneumovirus Not Detected (Not Detect); Human Rhinovirus/Enterovirus Not Detected (Not Detect); Influenza A Subtype 2009 H1 Not Detected (Not Detect); Influenza A Untypeable Not Detected (Not Detect); Influenza B Not Detected (Not Detect); Parainfluenza Virus 1 Not Detected (Not Detect); Parainfluenza Virus 2 Not Detected (Not Detect); Parainfluenza Virus 3 Not Detected (Not Detect); Parainfluenza Virus 4 Not Detected (Not Detect); Respiratory Syncytial Virus Not Detected (Not Detect)
[2018-06-09 14:50] LABS: Chlamydophila pneumoniae Not Detected (Not Detect); Mycoplasma pneumoniae Not Detected (Not Detect)
[2018-06-09] MEDS ORDERED: Furosemide 40 MG/4 ML VIAL IVP ONE (15:22)
--- NOTE | 2018-06-09 16:59 | Electrocardiograph Report ---
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
[2018-06-09] MEDS: Piperacillin/Tazobactam 3.375 GM in 0.9 % Sodium Chloride Mini Bag 100 ML IVPB SCH (23:29)
[2018-06-10 00:22] LABS: Bilirubin,Urine Negative (Negative); Blood,Urine Small (Negative); Clarity,Urine Cloudy (Clear); Color,Urine Yellow (Yellow); Glucose,Urine (UA) Normal (Normal); Ketones,Urine Negative (Negative); Leukocyte Esterase,Urine Small (Negative); Nitrite,Urine Negative (Negative); Protein,Urine Trace mg/dL (Neg-Trace); Specific Gravity,Urine < 1.005 (1.010-1.025)
[2018-06-10 00:24] LABS: Bacteria,Urine Many per hpf (None-Few); Hyaline Casts,Urine None Seen per lpf (None-Few); Squamous Epithelial Cell,Urine Moderate per lpf (None-Few)
[2018-06-10 05:12] LABS: Basophils % 0.3 %; Eosinophils % 0.6 %; Hematocrit 34.9 % (35.3-44.9); Hemoglobin 11.7 g/dL (11.5-15.4); Immature Granulocytes % 0.3 % (0-4); Lymphocytes # 0.8 K/mcL (0.6-4.6); Lymphocytes % 12.3 %; Mean Corpuscular HGB Conc 33.5 g/dL (31.6-35.5); Mean Corpuscular Hemoglobin 29.3 pg (28.0-33.3); Mean Corpuscular Volume 87.3 fL (83.0-100.0); Mean Platelet Volume 10.4 fL (9.4-12.4); Monocytes # 0.7 K/mcL (0.0-1.3); Monocytes % 10.7 %; Neutrophils # 4.8 K/mcL (1.6-8.9); Platelet Count 116 K/mcL (140-400); Red Cell Distribution Width 13.8 % (11.5-14.5); Segmented Neutrophils % 75.8 %
[2018-06-10 05:29] LABS: BUN/Creatinine Ratio 20 (6-26); Blood Urea Nitrogen 11 mg/dL (8-23); Calcium 8.2 mg/dL (8.6-10.3); Carbon Dioxide 21 mEq/L (23-29); Chloride 103 mEq/L (98-107); Glucose 131 mg/dL (70-105); Osmolality,Calculated 275 (280-300); Potassium 3.8 mEq/L (3.5-5.1); Sodium 132 mEq/L (136-145); eGFR For Non-African Americans > 60 (> 60)
[2018-06-10] MEDS: *HR* Heparin 5,000 UNIT/ML VIAL SQ SCH ×3 (06:30→22:05)
[2018-06-10] MEDS: Levothyroxine 25 MCG TABLET PO SCH (06:30)
[2018-06-10] MEDS: 0.9 % Sodium Chloride 1,000 ML IVC SCH (06:33)
[2018-06-10] MEDS: Insulin LISPRO 300 UNITS/3 ML VIAL SQ SCH ×4 (07:59→22:05)
[2018-06-10] MEDS: Loratadine 10 MG TABLET PO SCH (08:16)
[2018-06-10] MEDS: Piperacillin/Tazobactam 3.375 GM in 0.9 % Sodium Chloride Mini Bag 100 ML IVPB SCH ×3 (08:16→23:48)
[2018-06-10] MEDS: Nystatin POWDER 30 GM BOTTLE TP SCH ×4 (08:20→22:05)
[2018-06-10 14:18] LABS: Bilirubin,Urine Negative (Negative); Blood,Urine Small (Negative); Clarity,Urine Clear (Clear); Color,Urine Yellow (Yellow); Glucose,Urine (UA) Normal (Normal); Ketones,Urine 15 mg/dL (Negative); Leukocyte Esterase,Urine Trace (Negative); Nitrite,Urine Positive (Negative); Protein,Urine Trace mg/dL (Neg-Trace); Specific Gravity,Urine < 1.005 (1.010-1.025)
[2018-06-10] MEDS ORDERED: Albuterol 2.5 MG/3 ML NEBULIZER IH PRN (14:30)
[2018-06-10] MEDS ORDERED: Furosemide 20 MG/2 ML VIAL IVP ONE (14:31)
--- NOTE | 2018-06-10 17:30 | Internal Med Progress Note ---
Hospitalist Progress Note - Encounter Date of Encounter: 06/10/18 Time of Encounter: 02:00 - Subjective Interval History: Patient seen and examined multiple times throughout the day. When I saw her the first time she complained of intense fatigue. She still complained of cough with unknown colored phlegm. Later in the day the patient experienced wheezing and dyspnea. A chest x-ray was obtained unchanged pulmonary vascular congestion and shows pneumonia. Patient had urinary frequency complaints so UA was checked yesterday. Her urinalysis suggested a UTI and she was started on Zosyn. The patient's stress test showed no ischemia and good ejection fraction. The patient's respiratory tree panel was negative. The patient had negative troponin and slightly high BNP. - Exam Vitals: Temp Pulse Resp BP Pulse Ox 98.3 F 108 16 144/73 87 06/10/18 11:42 06/10/18 15:30 06/10/18 15:30 06/10/18 15:30 06/10/18 15:30 Exam: Vitals: Reviewed General: Obese white female lying comfortably in bed in no acute distress Skin: Warm and supple. Neck: No lymphadenopathy. No JVD. No carotid bruits. No palpable thyroid. Chest: Normal thoracic expansion. Normal breath sounds at the time heard with left-sided occasional crackles. Heart: Normal S1 & S2; rhythmic. No rubs or murmurs. Abdomen: Non-distended, soft and non-tender to palpation. No peritoneal reaction. Extremities: No clubbing, cyanosis or edema. No calf tenderness. Normal distal pulses. Mild nonpitting edema. Neurological: Awake, alert and oriented to person, place and time. No focal deficits. Psych: Affect appropriate. - Assessment and Plan (1) Pneumonia Current Visit: Yes Status: Acute Assessment and Plan: Start patient on IV vancomycin. Patient is already started on Zosyn for UTI yesterday. Continue nebs and oxygen as needed. Obtain Legionella and Streptococcus pneumonia urine antigen and blood cultures. (2) UTI (urinary tract infection) Current Visit: Yes Status: Acute Assessment and Plan: Continue Zosyn. Follow urine culture. (3) Chest pain Current Visit: Yes Status: Acute Assessment and Plan: Troponins have been negative. Repeat stress images in progress. Qualifiers: Chest pain type: unspecified Qualified Code(s): R07.9 - Chest pain, unspecified (4) Renal mass Current Visit: Yes Status: Suspected Assessment and Plan: MRI shows complex renal cyst with sonographic follow-up in 6 months recommended. (5) Diabetes Current Visit: Yes Status: Acute Assessment and plan: Continue insulin sliding scale for the time being. Noted to have poor control based on her previous A1C. Qualifiers: Diabetes mellitus type: type 2 Diabetes mellitus shelter insulin use: unspecified shelter insulin use status Diabetes mellitus complication status: with unspecified complications Qualified Code(s): E11.8 - Type 2 diabetes mellitus with unspecified complications (6) Nodular hyperplasia of liver Current Visit: Yes Status: Acute Assessment and plan: U/S abdomen Cirrhotic liver with no visualized focal lesion. This is from possible underlying mild fatty liver. Will obtain hepatitis profile. DVT prophylaxis with subcutaneous heparin. - Time Spent with Patient Total time spent is greater than 50% in coordination of care (as documented) at patient's floor/unit and/or counseling patient: Internal Medicine: Result - Labs CBC & Chem 7: 06/10/18 04:47 06/10/18 04:47 Labs: Short CBC 06/10/18 Range/Units 04:47 WBC 6.4 (4.3-11.1) K/mcL Hgb 11.7 (11.5-15.4) g/dL Hct 34.9 L (35.3-44.9) % Plt Count 116 L (140-400) K/mcL Neutrophils # 4.8 (1.6-8.9) K/mcL BMP 06/10/18 04:47 Sodium 132 L Potassium 3.8 Chloride 103 Carbon Dioxide 21 L BUN 11 Creatinine 0.56 L Glucose 131 H Calcium 8.2 L Cardiac Enzymes 06/10/18 Range/Units 14:59 Troponin I < 0.03 (< 0.04) ng/mL Urine 06/09/18 06/10/18 Range/Units 23:40 14:02 Urine Color Yellow Yellow (Yellow) Urine Clarity Cloudy A Clear (Clear) Urine pH 7.0 7.0 (5.0-8.0) pH Units Ur Specific [place] < 1.005 L < 1.005 L (1.010-1.025) Urine Protein Trace Trace (Neg-Trace) mg/dL Urine Glucose (UA) Normal Normal (Normal) mg/dL - Impressions Impressions Chest X-Ray 06/10/18 16:21 IMPRESSION: 1. Patchy right infrahilar opacities, concerning for developing pneumonia. 2. Unchanged appearance of pulmonary vascular congestion. D/ / Stephon Cedillo MD / Stephon Cedillo MD Interpreting Provider: Stephon Cedillo MD Consult Discharge Plan - Plan Referrals: Shasha Kaiser MD [Primary Care Provider] - (1) Pneumonia Qualifiers: Pneumonia type: due to unspecified organism (2) UTI (urinary tract infection) Qualifiers: Urinary tract infection type: acute cystitis
[2018-06-10] MEDS ORDERED: Fluconazole 100 MG TABLET PO ONE (21:29)
[2018-06-11] MEDS: Levothyroxine 25 MCG TABLET PO SCH (05:39)
[2018-06-11] MEDS: *HR* Heparin 5,000 UNIT/ML VIAL SQ SCH ×3 (05:39→21:29)
[2018-06-11 06:51] LABS: Basophils # 0.1 K/mcL (0.0-0.2); Basophils % 0.9 %; Eosinophils # 0.1 K/mcL (0.0-0.6); Eosinophils % 1.9 %; Hematocrit 36.8 % (35.3-44.9); Hemoglobin 12.1 g/dL (11.5-15.4); Immature Granulocytes % 1.6 % (0-4); Lymphocytes # 1.5 K/mcL (0.6-4.6); Lymphocytes % 23.9 %; Mean Corpuscular HGB Conc 32.9 g/dL (31.6-35.5); Mean Corpuscular Hemoglobin 29.1 pg (28.0-33.3); Mean Corpuscular Volume 88.5 fL (83.0-100.0); Mean Platelet Volume 10.3 fL (9.4-12.4); Neutrophils # 3.6 K/mcL (1.6-8.9); Platelet Count 145 K/mcL (140-400); Red Blood Count 4.16 M/mcL (3.82-4.97); Red Cell Distribution Width 14.1 % (11.5-14.5); Segmented Neutrophils % 55.7 %
[2018-06-11 07:12] LABS: BUN/Creatinine Ratio 18 (6-26); Blood Urea Nitrogen 11 mg/dL (8-23); Calcium 8.4 mg/dL (8.6-10.3); Carbon Dioxide 23 mEq/L (23-29); Chloride 104 mEq/L (98-107); Glucose 130 mg/dL (70-105); Osmolality,Calculated 279 (280-300); Potassium 3.6 mEq/L (3.5-5.1); Sodium 134 mEq/L (136-145); eGFR For Non-African Americans > 60 (> 60)
[2018-06-11] MEDS: Insulin LISPRO 300 UNITS/3 ML VIAL SQ SCH ×4 (07:56→21:07)
[2018-06-11 08:14] LABS: Hepatitis A Antibody IgM Nonreactive (Nonreactive); Hepatitis B Core IgM Nonreactive (Nonreactive); Hepatitis B Surface Antigen Nonreactive (Nonreactive); Hepatitis C Virus Antibody Nonreactive (Nonreactive)
[2018-06-11] MEDS: Nystatin POWDER 30 GM BOTTLE TP SCH ×4 (08:35→21:28)
[2018-06-11] MEDS: Loratadine 10 MG TABLET PO SCH (08:36)
[2018-06-11] MEDS: Piperacillin/Tazobactam 3.375 GM in 0.9 % Sodium Chloride Mini Bag 100 ML IVPB SCH ×3 (08:36→23:35)
[2018-06-11] MEDS ORDERED: Perflutren Lipid Microsphere 1.3 ML in 0.9 % Sodium Chloride 8.7 ML IVP ONE (12:29)
[2018-06-11] MEDS ORDERED: Furosemide 40 MG/4 ML VIAL IVP ONE (12:29)
--- NOTE | 2018-06-11 12:33 | Internal Med Progress Note ---
Hospitalist Progress Note - Encounter Date of Encounter: 06/11/18 Time of Encounter: 12:32 - Subjective Interval History: Patient is awake and alert. Feels less tired today. Still has significant shortness of breath with minimal exertion. Did have good response to Lasix and had good urine output. No fevers or chills reported overnight. No nausea or vomiting. - Exam Vitals: Temp Pulse Resp BP Pulse Ox 98.1 F 80 16 114/60 95 06/11/18 11:10 06/11/18 11:10 06/11/18 11:10 06/11/18 11:10 06/11/18 11:10 Exam: General: Patient is alert, no acute distress, oriented x 3, patient is morbidly obese Respiratory: Decreased breath sounds at both bases. Coarse crackles Cardiovascular: Regular rate and rhythm. s1 and s2 normal No clicks, rubs, gallops, or murmurs. Pedal edema improved. Abdomen: Abdomen is soft, nontender. Bowel sounds are present Musculoskeletal: Spontaneously moving all extremities Skin: warm, dry, intact. Neuro: Alert oriented x 3 normal cranial nerves, no focal deficits - Assessment and Plan (1) Pneumonia Current Visit: Yes Status: Acute Assessment and Plan: Chest x-ray done yesterday showed patchy infiltrates mainly in the right side. On IV antibiotics at this time. Continue Zosyn. Will add azithromycin. MRSA screen is negative. Moderate risk for complications. Continue O2 supplementation. Wean FiO2 as tolerated. (2) Chest pain Current Visit: Yes Status: Acute Assessment and Plan: Stress test negative for ischemia. No longer having chest pain at this time. (3) Elevated WBCs Current Visit: Yes Status: Acute Assessment and Plan: Due to pneumonia. Continue antibiotics. Resolved now. (4) Diabetes Current Visit: Yes Status: Chronic Assessment and Plan: Well-controlled. Continue current insulin regimen and diabetic diet (5) Nodular hyperplasia of liver Current Visit: Yes Status: Acute Assessment and Plan: Hepatitis viral panel was negative. Most likely due to steatohepatitis. (6) UTI (urinary tract infection) Current Visit: Yes Status: Acute Assessment and Plan: Urine culture growing gram-negative rods. Will follow results. Patient is on Zosyn. DVT Prophylaxis: With subcutaneous heparin - Time Spent with Patient Total time spent is greater than 50% in coordination of care (as documented) at patient's floor/unit and/or counseling patient: Internal Medicine: Result - Labs CBC & Chem 7: 06/11/18 06:21 06/11/18 06:21 Labs: Short CBC 06/11/18 Range/Units 06:21 WBC 6.4 (4.3-11.1) K/mcL Hgb 12.1 (11.5-15.4) g/dL Hct 36.8 (35.3-44.9) % Plt Count 145 (140-400) K/mcL Neutrophils # 3.6 (1.6-8.9) K/mcL BMP 06/11/18 06:21 Sodium 134 L Potassium 3.6 Chloride 104 Carbon Dioxide 23 BUN 11 Creatinine 0.61 Glucose 130 H Calcium 8.4 L Cardiac Enzymes 06/10/18 Range/Units 14:59 Troponin I < 0.03 (< 0.04) ng/mL Urine 06/10/18 Range/Units 14:02 Urine Color Yellow (Yellow) Urine Clarity Clear (Clear) Urine pH 7.0 (5.0-8.0) pH Units Ur Specific [place] < 1.005 L (1.010-1.025) Urine Protein Trace (Neg-Trace) mg/dL Urine Glucose (UA) Normal (Normal) mg/dL - Impressions Impressions Chest X-Ray 06/10/18 16:21 IMPRESSION: 1. Patchy right infrahilar opacities, concerning for developing pneumonia. 2. Unchanged appearance of pulmonary vascular congestion. D/ / Stephon Cedillo MD / Stephon Cedillo MD Interpreting Provider: Stephon Cedillo MD Consult Discharge Plan - Plan Referrals: Shasha Kaiser MD [Primary Care Provider] - (1) Pneumonia Qualifiers: Pneumonia type: due to unspecified organism Laterality: right Lung location: lower lobe of lung Qualified Code(s): J18.1 - Lobar pneumonia, unspecified organism (2) Chest pain Qualifiers: Chest pain type: unspecified Qualified Code(s): R07.9 - Chest pain, unspecif ied (3) Elevated WBCs Qualifiers: Leukocytosis type: unspecified Qualified Code(s): D72.829 - Elevated white blood cell count, unspecified (4) Diabetes Qualifiers: Diabetes mellitus type: type 2 Diabetes mellitus alf insulin use: unspecified alf insulin use status Diabetes mellitus complication status: with unspecified complications Qualified Code(s): E11.8 - Type 2 diabetes mellitus with unspecified complications (6) UTI (urinary tract infection) Qualifiers: Urinary tract infection type: acute cystitis Hematuria presence: without hematuria Qualified Code(s): N30.00 - Acute cystitis without hematuria
[2018-06-11] MEDS: Azithromycin 500 MG in D5% in Water 250 ML IVPB SCH (13:13)
[2018-06-12 05:26] LABS: Basophils # 0.1 K/mcL (0.0-0.2); Basophils % 1.5 %; Eosinophils # 0.2 K/mcL (0.0-0.6); Eosinophils % 2.6 %; Hematocrit 35.7 % (35.3-44.9); Hemoglobin 11.9 g/dL (11.5-15.4); Immature Granulocytes % 4.9 % (0-4); Lymphocytes % 26.1 %; Mean Corpuscular HGB Conc 33.3 g/dL (31.6-35.5); Mean Corpuscular Hemoglobin 29.2 pg (28.0-33.3); Mean Corpuscular Volume 87.5 fL (83.0-100.0); Mean Platelet Volume 10.3 fL (9.4-12.4); Monocytes # 1.1 K/mcL (0.0-1.3); Monocytes % 14.2 %; Platelet Count 166 K/mcL (140-400); Red Blood Count 4.08 M/mcL (3.82-4.97); Segmented Neutrophils % 50.7 %
[2018-06-12 05:37] LABS: Neutrophils # 3.9 K/mcL (1.6-8.9)
[2018-06-12 05:43] LABS: BUN/Creatinine Ratio 22 (6-26); Blood Urea Nitrogen 13 mg/dL (8-23); Calcium 8.2 mg/dL (8.6-10.3); Carbon Dioxide 23 mEq/L (23-29); Chloride 103 mEq/L (98-107); Glucose 145 mg/dL (70-105); Osmolality,Calculated 281 (280-300); Potassium 3.2 mEq/L (3.5-5.1); Sodium 134 mEq/L (136-145); eGFR For Non-African Americans > 60 (> 60)
[2018-06-12 05:49] LABS: Platelet Estimate Normal (Normal); Reactive Lymphocytes Present (Not Present)
[2018-06-12] MEDS: *HR* Heparin 5,000 UNIT/ML VIAL SQ SCH (06:30)
[2018-06-12] MEDS: Levothyroxine 25 MCG TABLET PO SCH (06:30)
[2018-06-12 07:23] VITALS: BP 144/80
[2018-06-12] MEDS: Insulin LISPRO 300 UNITS/3 ML VIAL SQ SCH ×2 (08:27→12:23)
[2018-06-12] MEDS: Piperacillin/Tazobactam 3.375 GM in 0.9 % Sodium Chloride Mini Bag 100 ML IVPB SCH (08:28)
[2018-06-12] MEDS: Loratadine 10 MG TABLET PO SCH (08:31)
[2018-06-12] MEDS: Nystatin POWDER 30 GM BOTTLE TP SCH (08:32)
[2018-06-12] MEDS ORDERED: Potassium Chloride Elixir 20 MEQ/15 ML UDC PO ONE (10:06)
--- NOTE | 2018-06-12 11:33 | Discharge Summary ---
<Viv Barbosa U - Last Filed: 06/12/18 11:44> - NOTES TO OUTPATIENT PROVIDER Notes to Outpatient Provider: F/U US in 6 months for Renal mass Orders not resulted at time of discharge: Pending orders 06/07/18 21:07 NM mariel perf SPECT multi [NM] Routine 06/07/18 22:13 Culture,Blood [BC] Routine 06/09/18 23:40 Culture,Urine [RM] Routine 06/10/18 16:58 Legionella Antigen [RM] Routine Streptococcal pneumoniae urin antigen [S. Pneumoniae Antigen] [RM] Routine 06/13/18 04:00 Basic Metabolic Panel AM 0400 Magnesium AM 0400 Date of Encounter: 06/12/18 Time of Encounter: 09:00 - Discharge Diagnosis (1) Pneumonia Priority: Primary Status: Acute Qualifiers: Pneumonia type: due to unspecified organism Laterality: right Lung location: lower lobe of lung Qualified Code(s): J18.1 - Lobar pneumonia, unspecified organism (2) Chest pain Priority: Secondary Status: Acute Qualifiers: Chest pain type: unspecified Qualified Code(s): R07.9 - Chest pain, unspecified (3) Elevated WBCs Priority: Secondary Status: Acute Qualifiers: Leukocytosis type: unspecified Qualified Code(s): D72.829 - Elevated white blood cell count, unspecified (4) Diabetes Priority: Secondary Status: Chronic Qualifiers: Diabetes mellitus type: type 2 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 Sanchez is a 63 year old female who had a hospital stay from 06/07/18 to 06/12/18. Pt presented to the ED with chest pain that was substernal in nature, ongoing several months, non-radiating and no other symptoms. An extensive workup was done and is as follows for her hospital stay: - Echo: LVEF 60%, no pulmonary hypertension, mild tricuspid regurgitation - Chest x:ray on admission: unremarkable - CT abdomen/pelvis: Liver nodular appearance - no clinical signs of cirrhosis - CTA: No PE, compressive atelectasis, pulmonary vascular congestion, lesion on right kidneyu - MRI: hepatitis steatosis, b/l renal lesions - complex cysts possibly - Repeat chest x-ray: patchy right infrahilar opacities indicative of pneumonia - Troponins - negative - Rapid strep test negative - Influenza A and B antigens negative - UA + for UTI - Urine culture: + Gram negative rods - Hepatitis viral panel: negative - Respiratory viral panel: negative There was no evidence of cardiac pathology causing the chest pain. Pt was found to have pneumonia and UTI on further testing. Pt being treated with IV zosyn and azithromycin. Pt will be D/C on Azithromyzin 500 mg PO 3x days, and Omnicef PO 7 more days. Pt will also be given Nystatin topical powder. Pt is hemodynamically stable now without significant complaints of SOB, dyspnea, CP, dysuria, or flank pain. Pt is okay with continuing abx regiment for treatment of PNA and UTI as outpatient. Discharge discussed with: patient - Time Spent with Patient Total time spent providing and/or coordinating discharge services: - Discharge Medications Prescriptions: Azithromycin [Zithromax Tri-Simón] 500 mg PO DAILY 1 Days #1 tablet Cefdinir [Omnicef] 300 mg PO BID 5 Days #10 capsule Nystatin POWDER [Nystop] 1 appl TP QID 30 Days #1 bottle Home Medications: Amitriptyline [Elavil] 25 mg PO DAILY 06/07/18 [History] Cyanocobalamin (Vitamin B-12) [Vitamin B12] 1,000 mcg PO DAILY 06/07/18 [History] DULoxetine [Cymbalta] 20 mg PO BID 06/07/18 [History] Glimepiride [Amaryl] 4 mg PO DAILY 06/07/18 [History] Levothyroxine [Synthroid] 25 mcg PO DAILY 06/07/18 [History] Loratadine [Claritin] 10 mg PO DAILY 06/07/18 [History] Losartan Potassium 25 mg PO DAILY 06/07/18 [History] Montelukast [Singulair] 10 mg PO DAILY 06/07/18 [History] Naproxen 500 mg PO BID 06/07/18 [History] Tramadol HCl [Ultram] 50 - 100 mg PO BID PRN 06/07/18 [History] metFORMIN [Glucophage] 1,000 mg PO BIDWM 06/07/18 [History] Azithromycin [Zithromax Tri-Simón] 500 mg PO DAILY 1 Days #1 tablet 06/12/18 [Rx] Cefdinir [Omnicef] 300 mg PO BID 5 Days #10 capsule 06/12/18 [Rx] Nystatin POWDER [Nystop] 1 appl TP QID 30 Days #1 bottle 06/12/18 [Rx] Allergies/Adverse Reactions: Allergy/AdvReac Type Severity Reaction Status Date / Time lisinopril Allergy Rash/Itchin Verified 06/07/18 22:18 g codeine AdvReac Vomiting Verified 06/07/18 22:18 Date of admission: 06/08/18 19:23 Primary care physician: Shasha Kaiser Consults: 06/12/18 07:55 Consult to Physical Therapy [CONS] Routine Comment: Evaluate, develop and implement POC Reason for Consult: Gen weakness Does patient have active BEDREST order?: No Is patient medically & hemodynamically stable?: Yes Discharging clinician: Queenie Olson Anticipated date of discharge: 06/12/18 - Constitutional Vitals: Temp Pulse Resp BP Pulse Ox 98.4 F 75 17 144/80 91 06/12/18 03:43 06/12/18 07:17 06/12/18 03:43 06/12/18 07:17 06/12/18 07:17 General appearance: Present: A&O X 3, no acute distress, obese, answers questions appropriately Exam: General: Patient is alert, no acute distress, oriented x 3, patient is morbidly obese Respiratory: Decreased breath sounds at both bases. Coarse crackles Cardiovascular: Regular rate and rhythm. s1 and s2 normal No clicks, rubs, gallops, or murmurs. Pedal edema improved. Abdomen: Abdomen is soft, nontender. Bowel sounds are present Musculoskeletal: Spontaneously moving all extremities Skin: warm, dry, intact. Neuro: Alert oriented x 3 normal cranial nerves, no focal deficits - Patient Status Disposition: Home, Self-Care Condition: Good Functional capacity at discharge: independent ambulation Overall status at discharge: patient is progressing back to baseline - Discharge Instructions Follow Up With: Shasha Kaiser MD [Primary Care Provider] - 06/16/18 10:45 am Additional Instructions: Follow-up with her primary care physician within one week of discharge. Finish all antibiotics as prescribed. If repeat episodes of chest pain, report to emergency department immediately <Josue Davis - Last Filed: 06/12/18 13:03> - NOTES TO OUTPATIENT PROVIDER Notes to Outpatient Provider: Patient had stress test done which was negative for ischemia or infarct. May need workup for noncardiac chest pain as outpatient. Orders not resulted at time of discharge: Pending orders 06/07/18 21:07 NM mariel perf SPECT multi [NM] Routine 06/07/18 22:13 Culture,Blood [BC] Routine 06/09/18 23:40 Culture,Urine [RM] Routine 06/10/18 16:58 Legionella Antigen [RM] Routine Streptococcal pneumoniae urin antigen [S. Pneumoniae Antigen] [RM] Routine 06/13/18 04:00 Basic Metabolic Panel AM 0400 Magnesium AM 0400 Date of Encounter: 06/12/18 - Discharge Diagnosis (1) Chest pain Priority: Primary Status: Acute Qualifiers: Chest pain type: unspecified Qualified Code(s): R07.9 - Chest pain, unspecified (2) Elevated WBCs Priority: Secondary Status: Acute Qualifiers: Leukocytosis type: unspecified Qualified Code(s): D72.829 - Elevated white blood cell count, unspecified (3) Diabetes Priority: Secondary Status: Chronic Qualifiers: Diabetes mellitus type: type 2 Diabetes mellitus retirement insulin use: unspecified retirement insulin use status Diabetes mellitus complication status: with unspecified complications Qualified Code(s): E11.8 - Type 2 diabetes mellitus with unspecified complications (4) Nodular hyperplasia of liver Priority: Secondary Status: Acute (5) Pneumonia Priority: Secondary Status: Acute Qualifiers: Pneumonia type: due to unspecified organism Laterality: right Lung location: lower lobe of lung Qualified Code(s): J18.1 - Lobar pneumonia, unspecified organism (6) UTI (urinary tract infection) Priority: Secondary Status: Acute Qualifiers: Urinary tract infection type: acute cystitis Hematuria presence: without hematuria Qualified Code(s): N30.00 - Acute cystitis without hematuria Hospital course: I personally evaluated the patient on my own, independent of medical student. I agree with his findings except to the extent set forth below Nuclear stress test done as part of chest pain workup on 06/08. Stress test was negative for ischemia or infarct. patient had asymptomatic bacteriuria. 06/10 chest x-ray showed patchy right infrahilar opacities concerning for developing pneumonia. She was treated inpatient with Zosyn and Zithromax. Will finish course of antibiotics as outpatient with Zithromax and Omnicef. Continue workup for noncardiac chest pain as outpatient Discharge discussed with: patient - Time Spent with Patient Total time spent providing and/or coordinating discharge services: Greater than 30 minutes Date of admission: 06/08/18 19:23 Primary care physician: Shasha Kaiser Consults: 06/12/18 07:55 Consult to Physical Therapy [CONS] Routine Comment: Evaluate, develop and implement POC Reason for Consult: Gen weakness Does patient have active BEDREST order?: No Is patient medically & hemodynamically stable?: Yes Discharging clinician: Josue Davis - Constitutional Vitals: Temp Pulse Resp BP Pulse Ox 98.4 F 75 17 144/80 91 06/12/18 03:43 06/12/18 07:17 06/12/18 03:43 06/12/18 07:17 06/12/18 07:17 - Patient Status Functional capacity at discharge: independent ambulation Overall status at discharge: patient is progressing back to baseline - Diet and Activity Activity: increase activity as tolerated Diet: diabetic diet, low fat, low cholesterol <Queenie Olson - Last Filed: 06/12/18 13:44> Orders not resulted at time of discharge: Pending orders 06/07/18 21:07 NM mariel perf SPECT multi [NM] Routine 06/07/18 22:13 Culture,Blood [BC] Routine 06/09/18 23:40 Culture,Urine [RM] Routine 06/10/18 16:58 Legionella Antigen [RM] Routine Streptococcal pneumoniae urin antigen [S. 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 Diabetes mellitus complication status: with unspecified complications Qualified Code(s): E11.8 - Type 2 diabetes mellitus with unspecified complications (4) Nodular hyperplasia of liver Status: Acute (5) Pneumonia Status: Acute Qualifiers: Pneumonia type: due to unspecified organism Laterality: right Lung location: lower lobe of lung Qualified Code(s): J18.1 - Lobar pneumonia, unspecified organism (6) UTI (urinary tract infection) Status: Acute Qualifiers: Urinary tract infection type: acute cystitis Hematuria presence: without hematuria Qualified Code(s): N30.00 - Acute cystitis without hematuria Hospital course: Ms. Sanchez is a 63 year old female Discharge discussed with: patient - Time Spent with Patient Total time spent providing and/or coordinating discharge services: Less than 30 minutes (8 min) Date of admission: 06/08/18 19:23 Primary care physician: Shasha Kaiser Consults: 06/12/18 07:55 Consult to Physical Therapy [CONS] Routine Comment: Evaluate, develop and implement POC Reason for Consult: Gen weakness Does patient have active BEDREST order?: No Is patient medically & hemodynamically stable?: Yes - Constitutional Vitals: Temp Pulse Resp BP Pulse Ox 98.4 F 75 17 144/80 91 06/12/18 03:43 06/12/18 07:17 06/12/18 03:43 06/12/18 07:17 06/12/18 07:17 - Neck Neck exam general surgery: Present: supple, trachea midline. Absent: lymphadenopathy - Respiratory Respiratory exam: Absent: accessory muscle use, rales, rhonchi, wheezes Additional comments: right base crackles - Cardiovascular Cardiovascular exam: Present: RRR, +S1, +S2. Absent: diastolic murmur, gallop, rubs, systolic murmur - Extremities Exam Extremities exam: Present: warm, radial pulses palpable and symmetrical. Absent: calf tenderness, cyanotic, pedal edema - Attending Attestation I saw evaluated and examined this patient and my medical decision-making was reviewed with the Resident Physician, Josue Davis. I agree with the documented findings, disposition and treatment plan as described except to any changes set forth below. We independently had [id number] contact with the patient. Patient was initially hospitalized for chest pain. Worked up with troponins which were negative. Then she underwent cardiac stress test which was negative for ischemia. Patient developed shortness of breath than and is chest x-ray showed possible right-sided infiltrates. She was started on IV antibiotics for this. Her urine was also positive for gram-negative rods. She also received Lasix as the worse concern for pulmonary congestion and fluid overload. She responded well to this treatment and is now doing much better. 2-D echocardiogram shows normal ejection fraction. Patient does not add at this time, the patient is at the fluid overload was due to the patient receiving IV fluids here. She does not usually develop swelling in her lower extremities or shortness of breath with exertion. Nevertheless, she will be followed by her primary care provider for further management. She will complete antibiotic course for pneumonia and UTI after discharge.
[2018-06-12] MEDS: Azithromycin 500 MG in D5% in Water 250 ML IVPB SCH (11:48)
== END 2018-06-12 14:22 | disposition home or self-care (01) | DRG 139 ==
LOC: EMEROOARM 17:15 → 2NENU 17:15 → SUATTDRO 06-08 19:23
PROVIDERS: ADMIT Family Medicine; ATTEND Internal Medicine

== ENCOUNTER 2018-08-27 10:08 | Observation (INO) ==
--- NOTE | 2018-08-27 10:18 | Emergency Department Note ---
Disposition Clinical Impression: Chest pain Qualifiers: Chest pain type: chest pain due to myocardial ischemia Qualified Code(s): I20.0 - Disposition: Admitted As Inpatient Condition: Fair Time of Disposition: 16:06 Chest Pain HPI - General Stated Complaint: chest pain Time Seen by Provider: 08/27/18 10:11 Vital Signs Reviewed: Yes Nursing Notes Reviewed: Yes - History of Present Illness HPI Narrative: chest pain onset yesterday evening while sitting watching television. Intermittent. Lasting 10-30 seconds. Located left mid retrosternal with radiation to left arm and left jaw (described as an ache). Associated with dyspnea on exertion as well as a productive cough (unable to describe sputum). She describes a pleuritic component in that it is worse with deep inspiration and with cough. Similar to her as her previous pneumonia Jun 2018 however this episode is worse. Patient does have associated headache however, she has a history of headaches and this feels the same. She also notes she has been on prolonged steroids and most recent course of antibiotics approximately 1 month ago, azithromycin. PMH: obesity, DM on oral antihyperglycemics (metformin and glipizide), HTN, LINH, thyroid disease, fibromyalgia Habits: No EtOH, no illicit, no tobacco use. ROS: Pos: as above Neg: fever, chills, nausea, vomiting, palpitations, back pain, trauma, weakness or numbness or tingling in her upper extremities. No abdominal pain, dysuria, diarrhea, constipation. No myalgia or headache. - Related Data Home Medications Medication Instructions Recorded Confirmed Amitriptyline [Elavil] 25 mg PO HS 06/07/18 08/27/18 Cyanocobalamin (Vitamin B-12) 1,000 mcg PO DAILY 06/07/18 08/27/18 [Vitamin B12] DULoxetine [Cymbalta] 20 mg PO DAILY 06/07/18 08/27/18 Glimepiride [Amaryl] 4 mg PO DAILY 06/07/18 08/27/18 Levothyroxine [Synthroid] 25 mcg PO DAILY 06/07/18 08/27/18 Loratadine [Claritin] 10 mg PO DAILY 06/07/18 08/27/18 Losartan Potassium 25 mg PO DAILY 06/07/18 08/27/18 Montelukast [Singulair] 10 mg PO QPM 06/07/18 08/27/18 Naproxen 500 mg PO BID 06/07/18 08/27/18 metFORMIN [Glucophage] 1,000 mg PO BIDWM 06/07/18 08/27/18 Allergies Allergy/AdvReac Type Severity Reaction Status Date / Time lisinopril Allergy Rash/Itchin Verified 06/07/18 22:18 g codeine AdvReac Vomiting Verified 06/07/18 22:18 Chest Pain PMH - Past Medical History Medical history: Reports: diabetes, fibromyalgia, hypertension, thyroid disease, other Surgical history: Reports: , cholecystectomy, WILY/BSO Psychiatric history: Reports: anxiety - Social History Smoking Status: Never smoker Alcohol use: Reports: none Drug use: Reports: none Physical Exam Vital Signs Reviewed General: Patient is alert, oriented, and in no acute distress. Head: atraumatic, normocephalic Eye: normal appearance, PERRL, EOMI, no scleral icterus, no conjunctival injection ENT: mucous membranes moist, normal external ear exam Neck: normal inspection, trachea midline, full ROM Chest: normal inspection, symmetric chest rise Respiratory: Good respiratory effort. Bilateral breath sounds are clear without wheezing, crackles, or rhonchi. Cardiovascular: Regular rate and rhythm. No clicks, rubs, gallops, or murmors. Normal heart sounds. No pedal edema bilaterally. Abdomen: Bowel sounds present normoactive. Abdomen is soft, nondistended, and nontender. No guarding or rebound. Unable to assess organomegaly secondary to patient's body habitus. Musculoskeletal: Spontaneously moving all extremities. Skin: warm, dry, intact. Neuro: GCS 15. No focal neurologic deficits observed. Psych: Patient's affect is appropriate for situation. Course Course Narrative: Echocardiogram 11 June 2018 cardiology impressions: EV/EV echocardiogram w enhance Impressions: LVEF 60%. Indeterminate diastolic function. Definity echo contrast was used. Normal right ventricular structure and function. Mild tricuspid regurgitation. No pulmonary hypertension. Left Ventricular Wall Motion: Rest Echo Findings All wall segments showed normal motion. Pharmacologic nuclear stress test 06/08/18 cardiology impression: Impression: Pharmacologic stress ECG is negative for ischemia at level of heart rate achieved. Gated EF > 70%. Perfusion imaging was negative for ischemia or infarct. CTA chest CT/CT angio chest IMPRESSION: No evidence of a pulmonary embolus. There is compressive atelectasis in the medial basal segment of the left lower lobe related to the tortuous thoracic aorta. There is incomplete visualization of an enhancing lesion in the lateral upper pole of the right kidney. This was not definitely visualized on the CT study performed with contrast 1 day ago. Follow-up renal protocol CT or MRI recommen ded for further evaluation. D/ / Renard Parks MD / Renard Parks MD Interpreting Provider: Renard Parks MD EKG dated 08 27 2018 at 10:17 interpreted as sinus tachycardia with a rate of 108. MN 173, QRS 88, QTc 451. Left axis. Left anterior fascicular block. LVH. Nonspecific ST-T changes. Compared to previous dated 06/09/2018 showing no acute ischemic changes or comparison. Patient notes, on her last admission, her HR hovered around 100. Wells PE score 1.5. Will D-dimer. EKG not ischemic. CXR unremarkable per radiology read and my review. Serum hematology unremarkable. Serum chemistry unremarkable including normal troponin. Discussed the above the patient. She is agreeable to admission for continued device short of chest pain given her multiple comorbidities and concerning story with pain radiating to her jaw and arm. I discussed the above the admitting hospitalist, Dr. Drummond. She agrees to accept the patient regarding continued evaluation and management. Chest X-Ray 08/27/18 10:10 IMPRESSION: No evidence of acute cardiopulmonary disease. D/ / 08/27/2018 11:15:06 Lawrence Moctezuma MD / [facility] Interpreting Provider: Lawrence Moctezuma MD Vital Signs Temperature 98.0 F 08/27/18 10:14 Pulse Rate 108 08/27/18 10:14 Respiratory Rate 19 08/27/18 10:14 Blood Pressure 183/93 08/27/18 10:14 O2 Sat by Pulse Oximetry 100 08/27/18 10:14 Temperature 98.2 F 08/27/18 15:28 Pulse Rate 92 08/27/18 15:28 Respiratory Rate 16 08/27/18 15:28 Blood Pressure 137/87 08/27/18 15:28 O2 Sat by Pulse Oximetry 96 08/27/18 15:28 Oxygen Delivery Oxygen Delivery Room Air Chest Pain - Lab Data Result diagrams: 08/27/18 14:02 08/27/18 10:30 Lab Results 08/27/18 08/27/18 08/27/18 Range/Units 10:30 10:30 10:30 WBC 7.7 (4.3-11.1) K/mcL RBC 4.51 (3.82-4.97) M/mcL Hgb 13.4 (11.5-15.4) g/dL Hct 41.0 (35.3-44.9) % MCV 90.9 (83.0-100.0) fL MCH 29.7 (28.0-33.3) pg MCHC 32.7 (31.6-35.5) g/dL RDW 13.7 (11.5-14.5) % Plt Count 169 (140-400) K/mcL MPV 9.7 (9.4-12.4) fL Immature Gran % 0.5 (0-4) % Seg Neutrophils % 64.5 % Lymphocytes % 23.1 % Monocytes % 8.1 % Eosinophils % 3.2 % Basophils % 0.6 % Neutrophils # 5.0 (1.6-8.9) K/mcL Lymphocytes # 1.8 (0.6-4.6) K/mcL Monocytes # 0.6 (0.0-1.3) K/mcL Eosinophils # 0.3 (0.0-0.6) K/mcL Basophils # 0.1 (0.0-0.2) K/mcL PT 10.3 (9.4-12.1) Seconds INR 0.9 APTT 33.9 (26.0-36.0) Seconds D-Dimer 394 (0-500) ng/mLFEU Sodium 136 (136-145) mEq/L Potassium 4.1 (3.5-5.1) mEq/L Chloride 100 (98-107) mEq/L Carbon Dioxide 28 (23-29) mEq/L BUN 9 (8-23) mg/dL Creatinine 0.62 (0.60-1.20) mg/dL Est GFR ( Amer) > 60 (> 60) Est GFR (Non-Af Amer) > 60 (> 60) BUN/Creatinine Ratio 15 (6-26) Glucose 209 H (70-105) mg/dL Calculated Osmolality 287 (280-300) Calcium 9.4 (8.6-10.3) mg/dL Troponin I < 0.03 (< 0.04) ng/mL Heart Score - Score History: Moderately Suspicious EKG: Normal Age: 45-65 Risk Factors: Equal/Greater than 3 risk factor or history of atherosclerotic disease Troponin: Less than normal limit HEART Score Total: 4 Attestation Statement - Attestation Attestation: I, Blade Parr, examined this patient and my medical decision-making was reviewed with the CARDIOVASCULAR DISEASE SPECIALIST/PA/Advanced Practice Nurse/Resident Physician. I agree with the documented findings, disposition and treatment plan as described except to the extent set forth below. 63-year-old female brought to the emergency Department for evaluation of acute onset chest pain. Patient states her symptoms are described as a sharpness in the center of her chest that radiate to her left neck, left upper extremity. Patient states she had associated nausea. Denies fever or recent trauma. Initial troponin negative. Initial troponin was negative. Patient has chest x- ray which did not show evidence of acute infiltrate or pneumothorax. EKG did not show evidence of STEMI. Patient will be admitted to the hospital for further care and evaluation.
[2018-08-27 10:39] LABS: Basophils # 0.1 K/mcL (0.0-0.2); Basophils % 0.6 %; Eosinophils # 0.3 K/mcL (0.0-0.6); Eosinophils % 3.2 %; Hemoglobin 13.4 g/dL (11.5-15.4); Immature Granulocytes % 0.5 % (0-4); Lymphocytes # 1.8 K/mcL (0.6-4.6); Lymphocytes % 23.1 %; Mean Corpuscular HGB Conc 32.7 g/dL (31.6-35.5); Mean Corpuscular Hemoglobin 29.7 pg (28.0-33.3); Mean Corpuscular Volume 90.9 fL (83.0-100.0); Mean Platelet Volume 9.7 fL (9.4-12.4); Monocytes # 0.6 K/mcL (0.0-1.3); Monocytes % 8.1 %; Platelet Count 169 K/mcL (140-400); Red Blood Count 4.51 M/mcL (3.82-4.97); Red Cell Distribution Width 13.7 % (11.5-14.5); Segmented Neutrophils % 64.5 %
[2018-08-27 10:46] LABS: INR 0.9; Prothrombin Time 10.3 Seconds (9.4-12.1)
[2018-08-27 10:49] LABS: Activated Partial Thrombo Time 33.9 Seconds (26.0-36.0)
[2018-08-27 11:01] LABS: BUN/Creatinine Ratio 15 (6-26); Blood Urea Nitrogen 9 mg/dL (8-23); Calcium 9.4 mg/dL (8.6-10.3); Carbon Dioxide 28 mEq/L (23-29); Chloride 100 mEq/L (98-107); Glucose 209 mg/dL (70-105); Osmolality,Calculated 287 (280-300); Potassium 4.1 mEq/L (3.5-5.1); Sodium 136 mEq/L (136-145); eGFR For Non-African Americans > 60 (> 60)
[2018-08-27 11:02] LABS: Troponin I < 0.03 ng/mL (< 0.04)
[2018-08-27] MEDS ORDERED: traMADol 50 MG TABLET PO PRN (13:09)
[2018-08-27] MEDS ORDERED: Dextrose 4 GM Chewable Tablets PO PRN ×2 (13:11)
[2018-08-27] MEDS ORDERED: *HR* Dextrose 50 % in Water (Syg) 50 ML SYRINGE IVP PRN (13:11)
[2018-08-27] MEDS ORDERED: D5% in Water 1,000 ML IVC PRN (13:11)
[2018-08-27] MEDS ORDERED: Dextrose Gel 15 GM/37.5 ML TUBE PO PRN ×2 (13:11)
[2018-08-27] MEDS ORDERED: Ondansetron 4 MG/2 ML VIAL IVP PRN (13:12)
[2018-08-27] MEDS ORDERED: Naloxone 0.4 MG/ML INJ IVP PRN (13:12)
--- NOTE | 2018-08-27 13:19 | Internal Med History&Physical ---
Date of Encounter: 08/27/18 Time of Encounter: 13:07 Internal Medicine - H&P: HPI Chief complaint: chest pain Admitted From: Home Plans for Post Hospital Care: Home History of present illness: Ms. Sanchez is a 63 year old female history of diabetes hypertension hyperlipidemia morbid obesity presenting emergency room for chest pain. Chest pain started yesterday afternoon, it was on and off, sharp, located to left lower chest, lasts for few seconds to a few minutes , exertion make it worse. Chest pain has been gotten worse this morning and the pain radiated to left shoulder and the neck, associated with shortness of breath and the dizziness. She denies fever or chills, she has chronic nonproductive cough since May 2018. Chest x-ray was negative. She denies fever no nausea vomiting diarrhea or constipation. In the emergency room vitals are stable, EKG has no ST elevation, first troponin is negative, d-dimer is negative, chest x-ray is negative. patient is going to be admitted for chest pain work up concerning for angina due to multiple risk factors. she had to negative stress test May 2018. We will consult the cardiology Past Med Surg Social Fam HX - Past Medical History Medical history: diabetes, fibromyalgia, hypertension, thyroid disease, other Additional medical history: sleep apnea Psychiatric history: anxiety - Past Surgical History Surgical History: , cholecystectomy, WILY/BSO Additional surgical history: TMJ surgery. tmj. pil. cyst. inc. hernia x 3. rectal fistula. ovarian cancer 2001 - Social History Smoking Status: Never smoker Smokeless Tobacco Status: No Alcohol use: none Drug use: none - Family History Mother Adopted: No Living Status: Hx Family Cardiac Disorders: Yes (father CHF) Hx Family Respiratory Disorders: No Hx Family Cancer: Yes (mother breast, stomach and lung) Hx Family GI Disorders: No Hx Family Endocrine Disorder: No Hx Family Neuromuscular Disorders: No Hx Family Neurologic Disorders: No Hx Family HEENT Disorders: No Hx Family Autoimmune Disorders: No Internal Medicine - H&P: Meds Amitriptyline [Elavil] 25 mg PO DAILY 06/07/18 [History] Cyanocobalamin (Vitamin B-12) [Vitamin B12] 1,000 mcg PO DAILY 06/07/18 [History] DULoxetine [Cymbalta] 20 mg PO BID 06/07/18 [History] Glimepiride [Amaryl] 4 mg PO DAILY 06/07/18 [History] Levothyroxine [Synthroid] 25 mcg PO DAILY 06/07/18 [History] Loratadine [Claritin] 10 mg PO DAILY 06/07/18 [History] Losartan Potassium 25 mg PO DAILY 06/07/18 [History] Montelukast [Singulair] 10 mg PO DAILY 06/07/18 [History] Naproxen 500 mg PO BID 06/07/18 [History] metFORMIN [Glucophage] 1,000 mg PO BIDWM 06/07/18 [History] Allergy/AdvReac Type Severity Reaction Status Date / Time lisinopril Allergy Rash/Itchin Verified 06/07/18 22:18 g codeine AdvReac Vomiting Verified 06/07/18 22:18 All Systems PM: A 10-system review of systems was performed and is negative for pertinent findings except as documented above in the HPI. - Constitutional Vitals: Temp Pulse Resp BP Pulse Ox 98.0 F 108 19 183/93 100 08/27/18 10:14 08/27/18 10:14 08/27/18 10:14 08/27/18 10:14 08/27/18 10:14 General appearance: Present: A&O X 3, morbidly obese, pleasant, obese Exam: CONSTITUTIONAL: Patient appears as an age appropriate female well developed, in no acute distress. EYES Clear sclerae, bilateral pupils are equal, reactive to light and accommodation. Extraocular movements are intact RESPIRATORY: No accessory muscle use, bilateral clear to auscultation, no wheezing, no crackles/rales. CARDIOVASCULAR: Regular heart rate, normal S1 and S2, no murmurs GASTROINTESTINAL: bowel sounds present, soft, no tenderness. No hepatosplenomegaly. No bilateral CVA tenderness MUSCULOSKELETAL: Joints in normal range of motion, no clubbing, no edema, no cyanosis. Bilateral peripheral pulses 2+ LYMPHATIC no lymphadenopathy in neck, groin and axilla bilaterally, no thyromegaly. NEUROLOGIC: CN II to XII are grossly intact, no focal neurological deficit. Deep tendon reflexes 2+ bilaterally. Normal light touch sensation to upper and lower extremity PSYCHIATRIC: Oriented x3, with good insight, mood is euthymic. No hallucinations or delusions. SKIN: Skin warm and dry, no rashes, no open wound. Internal Med - H&P Results - Labs CBC & Chem 7: 08/27/18 10:30 08/27/18 10:30 Labs: Short CBC 08/27/18 Range/Units 10:30 WBC 7.7 (4.3-11.1) K/mcL Hgb 13.4 (11.5-15.4) g/dL Hct 41.0 (35.3-44.9) % Plt Count 169 (140-400) K/mcL Neutrophils # 5.0 (1.6-8.9) K/mcL BMP 08/27/18 10:30 Sodium 136 Potassium 4.1 Chloride 100 Carbon Dioxide 28 BUN 9 Creatinine 0.62 Glucose 209 H Calcium 9.4 Cardiac Enzymes 08/27/18 Range/Units 10:30 Troponin I < 0.03 (< 0.04) ng/mL - Impressions ITS Impressions Chest X-Ray 08/27/18 10:10 IMPRESSION: No evidence of acute cardiopulmonary disease. D/ / 08/27/2018 11:15:06 Lawrence Moctezuma MD / [facility] Interpreting Provider: Lawrence Moctezuma MD - Assessment and plan (1) Chest pain Current Visit: Yes Status: Acute Assessment and plan: Chest pain, in setting of multiple risk factors. Although she had to negative stress test and a normal echocardiogram in June 2018, she has exertional chest pain and SOB, pain radiating to the jaw and left shoulder, concerning for unstable angina, I called Dr Graves, he recommended to start heparin drip nitroglycerin patch, nothing by mouth after midnight, continue serial troponin follow-up Qualifiers: Chest pain type: chest pain due to myocardial ischemia Qualified Code(s): I20.0 - Unstable angina (2) Hypertension Current Visit: Yes Status: Acute Assessment and plan: BP was eleavted ao arrival, will start NTG patch, continue home meds add coreg Qualifiers: Hypertension type: essential hypertension Qualified Code(s): I10 - Essential (primary) hypertension (3) Hyperlipidemia Current Visit: Yes Status: Acute Assessment and plan: check lipids Qualifiers: Hyperlipidemia type: other hyperlipidemia Qualified Code(s): E78.49 - Other hyperlipidemia; E78.4 - Other hyperlipidemia (4) Diabetes Current Visit: Yes Status: Chronic Assessment and plan: not on insulin at home, will continue home meds, hold metformin add SSI check A1C Qualifiers: Diabetes mellitus type: type 2 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: unspecified [facility] insulin use status Diabetes mellitus complication status: with unspecified complications Qualified Code(s): E11.8 - Type 2 diabetes mellitus with unspecified complications (5) Morbid obesity Current Visit: Yes Status: Acute (6) Hypothyroidism Current Visit: Yes Status: Acute Assessment and plan: conitnue home meds Qualifiers: Hypothyroidism type: acquired Qualified Code(s): E03.9 - Hypothyroidism, unspecified - Time Spent With Patient Total time spent is greater than 50% in coordination of care (as documented) at patient's floor/unit and/or counseling patient:
[2018-08-27] MEDS ORDERED: *HR* Heparin 5,000 UNIT/ML VIAL IVP ONE (13:24)
[2018-08-27] MEDS ORDERED: *HR* Heparin 5,000 UNIT/ML VIAL IVP PRN ×2 (13:24)
[2018-08-27] MEDS ORDERED: Heparin 25,000 UNIT/500 ML D5W 25,000 UNIT/500 ML BAG IVC SCH (13:30)
[2018-08-27 14:16] LABS: Hematocrit 40.3 % (35.3-44.9); Hemoglobin 13.3 g/dL (11.5-15.4); Mean Corpuscular Hemoglobin 29.6 pg (28.0-33.3); Mean Corpuscular Volume 89.6 fL (83.0-100.0); Mean Platelet Volume 9.7 fL (9.4-12.4); Platelet Count 185 K/mcL (140-400); Red Cell Distribution Width 13.8 % (11.5-14.5)
[2018-08-27 14:24] LABS: INR 0.9; Prothrombin Time 10.1 Seconds (9.4-12.1)
[2018-08-27] MEDS: Insulin LISPRO 300 UNITS/3 ML VIAL SQ SCH (17:35)
[2018-08-27 18:57] LABS: Estimated Average Glucose 171 mg/dl; Hemoglobin A1C 7.6 %
[2018-08-27] MEDS ORDERED: Insulin LISPRO 300 UNITS/3 ML VIAL SQ SCH (21:00)
--- NOTE | 2018-08-28 02:49 | Event Note ---
Date of Encounter: 08/27/18 Time of Encounter: 22:00 Alerted by pts. nurse ROLF Pack that pt. is d/t be seen by Cardiology in the a.m. Pt. informed nurse that she is a Gnosticist and will not accept blood products under any circumstances. Pt. has signed refusal of blood transfusion informed consent form which has been placed in her chart.
[2018-08-28 03:24] LABS: Basophils # 0.1 K/mcL (0.0-0.2); Basophils % 0.7 %; Eosinophils # 0.3 K/mcL (0.0-0.6); Eosinophils % 3.7 %; Hematocrit 39.2 % (35.3-44.9); Hemoglobin 13.1 g/dL (11.5-15.4); Immature Granulocytes % 0.7 % (0-4); Lymphocytes # 2.5 K/mcL (0.6-4.6); Lymphocytes % 30.6 %; Mean Corpuscular HGB Conc 33.4 g/dL (31.6-35.5); Mean Corpuscular Hemoglobin 29.6 pg (28.0-33.3); Mean Corpuscular Volume 88.7 fL (83.0-100.0); Mean Platelet Volume 9.8 fL (9.4-12.4); Monocytes # 0.6 K/mcL (0.0-1.3); Monocytes % 7.1 %; Neutrophils # 4.7 K/mcL (1.6-8.9); Platelet Count 166 K/mcL (140-400); Red Blood Count 4.42 M/mcL (3.82-4.97); Red Cell Distribution Width 13.8 % (11.5-14.5); Segmented Neutrophils % 57.2 %
[2018-08-28 03:44] LABS: BUN/Creatinine Ratio 16 (6-26); Blood Urea Nitrogen 10 mg/dL (8-23); Calcium 8.8 mg/dL (8.6-10.3); Carbon Dioxide 25 mEq/L (23-29); Chloride 104 mEq/L (98-107); Chol/HDL Ratio 5.4 (0-4.9); Cholesterol 178 mg/dL (< 200); Glucose 240 mg/dL (70-105); HDL Cholesterol 33 mg/dL (40-59); LDL Cholesterol,Calculated 100 mg/dL (0-99); Osmolality,Calculated 291 (280-300); Potassium 3.6 mEq/L (3.5-5.1); Sodium 137 mEq/L (136-145); Triglycerides 227 mg/dL (< 150); eGFR For Non-African Americans > 60 (> 60)
[2018-08-28] MEDS ORDERED: Levothyroxine 25 MCG TABLET PO SCH (06:30)
[2018-08-28] MEDS ORDERED: Nitroglycerin 0.4 MG PATCH.TD24 TD SCH (07:30)
[2018-08-28] MEDS ORDERED: Loratadine 10 MG TABLET PO SCH (09:00)
[2018-08-28] MEDS: Insulin LISPRO 300 UNITS/3 ML VIAL SQ SCH ×2 (09:16→12:15)
[2018-08-28] MEDS: *HR* Glimepiride 4 MG TABLET PO SCH ×2 (09:18→12:15)
[2018-08-28] MEDS: Cyanocobalamin (B-12) 1,000 MCG TABLET PO SCH ×2 (09:18→12:15)
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
[2018-08-28 11:02] VITALS: BP 142/92
[2018-08-28] MEDS ORDERED: Aspirin 81 MG TAB.CHEW PO SCH (11:15)
[2018-08-28] MEDS ORDERED: Aspirin 81 MG TAB.CHEW ONE (12:09)
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
--- NOTE | 2018-08-30 00:55 | Electrocardiograph Report ---
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
== END 2018-08-28 14:37 | disposition home or self-care (01) ==
LOC: 3BNU 10:08 → EMEROOARM 10:08 → SUATTDRO 13:06 → 3BNU 14:10
PROVIDERS: ADMIT Hospitalist; ATTEND Family Medicine